=== PATIENT | male | born 1965 | race American Indian/Alaskan Native ===

== ENCOUNTER 2017-02-07 14:38 | Inpatient (IN) | payer MEDICAID ==
[2017-02-07 15:11] VITALS: BMI 30.7
--- NOTE | 2017-02-07 15:53 | C.PDOC ---
History Of Present Illness 51 Y/O MALE WITH PMHx OF DM AND ANXIETY REFERRED BY DR. WILCOX WITH C/O LESION TO POSTERIOR RIGHT FOOT. PT STATES FOOT HAS BEEN WORSENING OVER THE LAST 4 WEEKS. RECURRENT CHRONIC WOUND, 3 PRIOR ULCERS IN THE SAME SPOT, WITH PRIOR DEBRIDEMENT - LAST EPISODE APRIL 2016. PRIOR HISTORY OF OSTEO FOR THE SAME, USED TO BE TREATED WITH ZOSYN AND VANCOMYCIN. PT STATES HE HAS BEEN ON KEFLEX AND FOLLOWING UP AT WOUND CARE. NOTES PRIOR HISTORY OF 4 SURGERIES R FOOT, 2 SURGERIES LEFT FOOT. DENIES FEVER, CHILLS, NVD. Time Seen by Provider: 02/07/17 15:24 Chief Complaint (Nursing): Abnormal Skin Integrity History Per: Patient History/Exam Limitations: no limitations Onset/Duration Of Symptoms: Persistent Current Symptoms Are (Timing): Still Present Location Of Injury: Right: Foot, Posterior: Foot Quality Of Symptoms: Painful, Draining Recent travel outside of the [place]: No Past Medical History Reviewed: Historical Data, Nursing Documentation, Vital Signs Vital Signs: Last Vital Signs Temp 98.2 F 02/07/17 15:06 Pulse 81 02/07/17 15:06 Resp 18 02/07/17 15:06 BP 124/82 02/07/17 15:06 Pulse Ox 98 02/07/17 16:00 - Medical History PMH: Anemia, Anxiety, Asthma, Bronchitis, Cardia Arrhythmia (SVT), Diabetes, HTN - [facility] Procedures DESTRUC-FOOT JT LES NEC (09/13/14) EXCIS DEBRIDE OF WOUND, INFECT, OR BURN (05/20/13) FOOT SYNOVECTOMY (09/13/14) INCIS W REM OF FORIEGN BODY OR DEV FROM SKIN & SUBCUT TISSUE (08/20/13) INJECT ANTIBIOTIC (10/06/13) INJECT/INFUSE NEC (09/10/13) INSERTION OF INFUSION DEV INTO SUP VENA CAVA, PERC APPROACH (03/01/15) LOC EXC BONE LESION NEC (11/12/13) LOC EXC LES METATAR/TAR (04/01/13) OTHER SUTURE OF TENDON (09/13/14) PHYSICAL THERAPY NEC (05/12/14) REPAIR OF HAMMER TOE (04/01/13) VENOUS CATHETERIZATION NEC (08/20/13) Family History: States: Unknown Family Hx - Social History Hx Tobacco Use: Yes Hx Alcohol Use: Yes Hx Substance Use: No (Denied) - Immunization History Hx Tetanus Toxoid Vaccination: No Hx Influenza Vaccination: Yes (2017) Hx Pneumococcal Vaccination: No Review Of Systems Except As Marked, All Systems Reviewed And Found Negative. Constitutional: Negative for: Fever, Chills Cardiovascular: Negative for: Chest Pain, Palpitations Respiratory: Negative for: Shortness of Breath Skin: Positive for: Lesions (R POSTERIOR HEEL). Negative for: Rash Neurological: Negative for: Weakness, Numbness Physical Exam - Physical Exam Appears: Non-toxic, No Acute Distress Skin: Warm, Dry Head: Atraumatic, Normacephalic Chest: Symmetrical Cardiovascular: Rhythm Regular Respiratory: Normal Breath Sounds, No Rales, No Rhonchi, No Wheezing Gastrointestinal/Abdominal: Soft, No Tenderness, No Guarding, No Rebound Back: Normal Inspection Extremity: Normal ROM, Other (R POSTERIOR FOOT, CALCANEAL AREA: < 1.0 CM WIDE, + TENDER, DIABETIC ULCER, CHRONIC APPEARING. ) Neurological/Psych: Oriented x3 ED Course And Treatment - Laboratory Results Result Diagrams: 02/07/17 16:06 02/07/17 16:06 O2 Sat by Pulse Oximetry: 98 (RA) Pulse Ox Interpretation: Normal - Radiology CXR: Interpreted by Me CXR Interpretation: Yes: No Acute Disease - Other Rad R FOOT X-Ray: Interpreted by Me (NEG) Progress - Re-Evaluation Re-evaluation Note: 02/07/17 1545 D/W DR HAAS WILL ADMIT 02/07/17 15:51 D/W PODIATRY RESIDENT WILL EVAL INPT - Data Reviewed Data Reviewed: Lab, Diagnostic imaging, EKG Disposition Counseled Patient/Family Regarding: Studies Performed, Diagnosis, Need For Followup - Disposition Disposition: HOSPITALIZED Disposition Time: 15:52 Condition: STABLE - Clinical Impression Clinical Impression: Diabetic foot ulcer - Scribe Statement The provider has reviewed the documentation as recorded by the Scribe SM All medical record entries made by the Scribe were at my direction and personally dictated by me. I have reviewed the chart and agree that the record accurately reflects my personal performance of the history, physical exam, medical decision making, and the department course for this patient. I have also personally directed, reviewed, and agree with the discharge instructions and disposition. Decision To Admit - Pt Status Changed To: Hospital Disposition Of: Inpatient - Admit Certification Admit to Inpatient:: After my assessment, the patient will require hospitalization for at least two midnights. This is because of the severity of symptoms shown, intensity of services needed, and/or the medical risk in this patient being treated as an outpatient. - InPatient: Physician Admission Certification: I certify that this patient requires 2 or more midnights of care for the following reason:: SEE NOTE - . Bed Request Type: Regular Admitting Physician: Andres Haas Patient Diagnosis: Diabetic foot ulcer
[2017-02-07] MEDS ORDERED: Piperacillin/Tazobact 3.375 gm 100 ML IV STA (15:55)
[2017-02-07] MEDS ORDERED: ALBUTEROL SULFATE INH PRN ×2 (15:59→19:45)
[2017-02-07] MEDS ORDERED: Vancomycin 1 gm/NS 200 ml 1 GM/200 ML BAG IVPB ONE (16:00)
--- NOTE | 2017-02-07 16:09 | CP.PCM.PN ---
Subjective - Date & Time of Evaluation Date of Evaluation: 02/07/17 Time of Evaluation: 16:00 - Subjective Subjective: PROGRESS NOTE. Service: DR. HAAS This is a 51 yo male with past medical hx of anxiety, type 1 DM, osteomyelitis, gynecomastia presenting with infected diabetic foot. Patient has been on keflex for the past month for non healing diabetic foot ulcer. He has been seeing Dr. Barajas. Most recently on Friday. Patient was told at that time to go to ER. However, patient had family emergency and waited to come to ER until today. The wound on his foot is non healing and recently the patient says it has been leaking with a foul odor. Denies fevers, but says he has some chills. This has happened before and he has had multiple debridements. Denies pain, sob, cp. PMH: DM type 1, gynecomastia, anxiety PSH: wound debridement, sx for gynecomastia Allergies: NKDA FH: DM Home meds: insulin humalog 70/30, xanax Social hx: Current smoker, not heavy. No drinking. No drugs. Not working. Objective - Vital Signs/Intake and Output Vital Signs (last 24 hours): Temp Pulse Resp BP Pulse Ox 98.2 F 81 18 124/82 98 02/07/17 15:06 02/07/17 15:06 02/07/17 15:06 02/07/17 15:06 02/07/17 16:00 - Medications Medications: Current Medications Home Med (Albuterol Sulfate [Ventolin Hfa]) 1 puff INH PRN PRN PRN Reason: Wheezing Piperacillin Sod/Tazobactam Sod (Zosyn 3.375 In Ns 100ml) 100 mls @ 200 mls/hr IV STAT STA Stop: 02/07/17 16:24 Vancomycin/Sodium Chloride (Vancomycin 1 Gm/Ns 200 Ml) 1 gm in 200 mls @ 166.667 mls/hr IVPB ONCE ONE Stop: 02/07/17 17:11 Vancomycin HCl 1 gm/ Sodium (Chloride) 250 mls @ 167 mls/hr IVPB Q24H DIMITRIOS Piperacillin Sod/Tazobactam Sod (Zosyn 3.375 Gm Iv Premix) 3.375 gm in 50 mls @ 100 mls/hr IVPB Q6H DIMITRIOS Insulin Human Regular (Novolin R) 0 unit SC ACHS DIMITRIOS PRN Reason: Protocol - Constitutional Appears: Non-toxic, No Acute Distress - Head Exam Head Exam: ATRAUMATIC, NORMAL INSPECTION, NORMOCEPHALIC - ENT Exam ENT Exam: Mucous Membranes Moist - Neck Exam Neck Exam: Full ROM, Normal Inspection - Respiratory Exam Respiratory Exam: NORMAL BREATHING PATTERN. absent: Respiratory Distress - Cardiovascular Exam Cardiovascular Exam: +S1, +S2 - GI/Abdominal Exam GI & Abdominal Exam: Soft, Normal Bowel Sounds. absent: Tenderness - Extremities Exam Extremities Exam: absent: Normal Inspection Additional comments: Wound right foot, open, no pus at this time - Neurological Exam Neurological Exam: Alert, Awake, Oriented x3 - Psychiatric Exam Psychiatric exam: Normal Affect, Normal Mood - Skin Skin Exam: Dry, Intact, Normal Color, Warm Assessment and Plan - Assessment and Plan (Free Text) Assessment: This is a 51 yo male with past medical hx of asthma, DM, anxiety, osteo presenting with 1. R/o osteomyelitis -x ray right foot -blood cultures -wound cultures -podiatry consult. recs appreciated. -ID consult. recs appreciated -will start IV vanco and zosyn -ESR and CRP 2. hx of DM -ISS 3. hx of asthma -continue albuterol 4. hx of anxiety -continue to monitor 5. GI/DVT ppx -SCDS -protonix discussed with Dr. Haas
[2017-02-07 16:12] LABS: BASO % 0.7 % (0.0-2.0); EOS # 0.1 K/uL (0.0-0.7); HEMATOCRIT 45.3 % (35.0-51.0); LYMPH # 1.8 K/uL (1.0-4.3); LYMPH % 27.3 % (20.0-40.0); MEAN CELL VOLUME 98.2 fL (80.0-94.0); MEAN CORPUSCULAR HEMOGLOBIN 33.2 pg (27.0-31.0); MEAN CORPUSCULAR HGB CONC 33.8 g/dL (33.0-37.0); MEAN PLATELET VOLUME 8.5 fL (7.2-11.7); MONO # 0.5 K/uL (0.0-0.8); MONO % 7.5 % (0.0-10.0); NRBC % 0.1 % (0.0-2.0); RED CELL DISTRIBUTION WIDTH 13.1 % (11.5-14.5); WHITE BLOOD COUNT 6.4 K/uL (4.8-10.8)
[2017-02-07 16:17] LABS: CHLORIDE 100 mmol/L (98-107)
[2017-02-07 16:18] LABS: POTASSIUM 3.7 mmol/L (3.6-5.2); SODIUM 133 mmol/L (132-148)
[2017-02-07 16:20] LABS: GFR AFRICAN-AMERICAN > 60
[2017-02-07 16:21] LABS: BLOOD UREA NITROGEN 7 mg/dL (9-20); CARBON DIOXIDE 23 mmol/L (22-30); GLUCOSE,RANDOM 112 mg/dL (75-110)
[2017-02-07] MEDS: Piperacill/Tazo 3.375gm in Dex 3.375 GM/50 ML BAG IVPB SCH ×2 (18:13→23:39)
--- NOTE | 2017-02-07 18:52 | RAD ---
PROCEDURE: CHEST RADIOGRAPH, 1 VIEW HISTORY: MED CLEAR COMPARISON: Comparison chest dated 02/28/2016. . FINDINGS: LUNGS: No acute infiltrates. PLEURA: No pneumothorax or pleural fluid seen. CARDIOVASCULAR: Normal. OSSEOUS STRUCTURES: No significant abnormalities. VISUALIZED UPPER ABDOMEN: Normal. OTHER FINDINGS: None. IMPRESSION: No acute infiltrates.
--- NOTE | 2017-02-07 19:28 | CP.PCM.CON ---
History of Present Illness - History of Present Illness History of Present Illness: 51 Y/O MALE WITH PMHx OF DM AND ANXIETY REFERRED BY DR. COLUNGA WITH C/O LESION TO POSTERIOR RIGHT FOOT. PT STATES FOOT HAS BEEN WORSENING OVER THE LAST 4 WEEKS. RECURRENT CHRONIC WOUND, 3 PRIOR ULCERS IN THE SAME SPOT, WITH PRIOR DEBRIDEMENT - LAST EPISODE APRIL 2016. PRIOR HISTORY OF OSTEO FOR THE SAME, USED TO BE TREATED WITH ZOSYN AND VANCOMYCIN. PT STATES HE HAS BEEN ON KEFLEX AND FOLLOWING UP AT WOUND CARE. NOTES PRIOR HISTORY OF 4 SURGERIES R FOOT, 2 SURGERIES LEFT FOOT. DENIES FEVER, CHILLS, NVD. - Medical History PMH: Anemia, Anxiety, Asthma, Bronchitis, Cardia Arrhythmia (SVT), Diabetes, HTN Review of Systems - Review of Systems All systems: reviewed and no additional remarkable complaints except - Constitutional Constitutional: As Per HPI - EENT Eyes: absent: As Per HPI, Blind Spots, Blurred Vision, Change in Vision, Decreased Night Vision, Diplopia, Discharge, Dry Eye, Exophthalmos, Floaters, Irritation, Itchy Eyes, Loss of Peripheral Vision, Pain, Photophobia, Requires Corrective Lenses, Sees Flashes, Spots in Vision, Tunnel Vision, Other Visual Disturbances, Loss of Vision, Other Ears: absent: As Per HPI, Decreased Hearing, Ear Discharge, Ear Pain, Tinnitus, Abnormal Hearing, Disequilibrium, Dizziness, Other Nose/Mouth/Throat: absent: As Per HPI, Epistaxis, Nasal Congestion, Nasal Discharge, Nasal Obstruction, Nasal Trauma, Nose Pain, Post Nasal Drip, Sinus Pain, Sinus Pressure, Bleeding Gums, Change in Voice, Dental Pain, Dry Mouth, Dysphagia, Halitosis, Hoarsness, Lip Swelling, Mouth Lesions, Mouth Pain, Odynophagia, Sore Throat, Throat Swelling, Tongue Swelling, Facial Pain, Neck Pain, Neck Mass, Other - Cardiovascular Cardiovascular: absent: As Per HPI, Acrocyanosis, Chest Pain, Chest Pain at Rest , Chest Pain with Activity, Claudication, Diaphoresis, Dyspnea, Dyspnea on Exertion, Edema, Irregular Heart Rhythm, Pain Radiating to Arm/Neck/Jaw, Leg Edema, Leg Ulcers, Lightheadedness, Orthopnea, Palpitations, Paroxysmal Nocturnal Dyspnea, Pedal Edema, Radiating Pain, Rapid Heart Rate, Slow Heart Rate, Syncope, Other - Respiratory Respiratory: absent: As Per HPI, Cough, Dyspnea, Hemoptysis, Dyspnea on Exertion , Wheezing, Snoring, Stridor, Pain on Inspiration, Chest Congestion, Excessive Mucous Production, Change in Mucous Color, Pain with Coughing, Other - Gastrointestinal Gastrointestinal: absent: As Per HPI, Abdominal Pain, Belching, Bloating, Change in Bowel Habits, Change in Stool Character, Coffee Ground Emesis, Constipation, Cramping, Diarrhea, Dyspepsia, Dysphagia, Early Satiety, Excessive Flatus, Fecal Incontinence, Heartburn, Hematemesis, Hematochezia, Loose Stools, Melena, Nausea, Odynophagia, Temesmus, Vomiting, Other - Genitourinary Genitourinary: absent: As Per HPI, Change in Urinary Stream, Difficulty Urinating, Dysuria, Flank Pain, Hematuria, Pyuria, Nocturia, Urinary Incontinence, Urinary Frequency, Urinary Hesitance, Urinary Urgency, Voiding Freq/Small Amts, Freq UTI, Hx Renal/Bladder Calculi, Hx /Renal Surgery, Bladder Distension, Other - Musculoskeletal Musculoskeletal: As Per HPI - Integumentary Integumentary: As Per HPI, Skin Pain, Wounds - Neurological Neurological: absent: As Per HPI, Abnormal Gait, Abnormal Hearing, Abnormal Movements, Abnormal Speech, Behavioral Changes, Burning Sensations, Confusion, Convulsions, Disequilibrium, Dizziness, Numbness, Focal Weakness, Frequent Falls , Headaches, Lack of Coordination, Loss of Vision, Memory Loss, Paresthesias, Radicular Pain, Restless Legs, Sensory Deficit, Syncope, Tingling, Tremor, Vertigo, Weakness, Other Visual Disturbances, Other - Psychiatric Psychiatric: absent: As Per HPI, Abnormal Sleep Pattern, Anhedonia, Anxiety, Auditory Hallucinations, Behavioral Changes, Change in Appetite, Change in Libido, Confusion, Depression, Difficulty Concentrating, Hallucinations, Homicidal Ideation, Hopelessness, Irritability, Memory Loss, Mood Swings, Panic Attacks, Paranoia, Suicidal Ideation, Visual Hallucinations, Tactile Hallucinations, Other - Endocrine Endocrine: absent: As Per HPI, Change in Body Appearance, Change in Libido, Cold Intolorance, Deepening of Voice, Excessive Sweating, Fatigue, Flushing, Heat Intolorance, Increase in Ring/Shoe/Hat Size, Palpitations, Polydipsia, Polyphagia, Polyuria, Other - Hematologic/Lymphatic Hematologic: absent: As Per HPI, Easy Bleeding, Easy Bruising, Lymphadenopathy, Other Past Patient History - Infectious Disease Hx of Infectious Diseases: None - Tetanus Immunizations Tetanus Immunization: Unknown - Past Medical History & Family History Past Medical History?: Yes - Past Social History Smoking Status: Light Smoker < 10 Cigarettes Daily - CARDIAC Hx Cardia Arrhythmia: Yes (SVT) Hx Hypertension: Yes - PULMONARY Hx Asthma: Yes Hx Bronchitis: Yes - NEUROLOGICAL Hx Neurological Disorder: No HX Cerebrovascular Accident: No - HEENT Hx HEENT Problems: No - RENAL Hx Chronic Kidney Disease: No - ENDOCRINE/METABOLIC Hx Diabetes Mellitus Type 2: Yes Hx Hypothyroidism: No - HEMATOLOGICAL/ONCOLOGICAL Hx Anemia: Yes - INTEGUMENTARY Hx Dermatological Problems: No Other/Comment: dry skin , hard thick nails both feet - MUSCULOSKELETAL/RHEUMATOLOGICAL Hx Falls: No - GASTROINTESTINAL Hx Gastrointestinal Disorders: No - GENITOURINARY/GYNECOLOGICAL Hx Genitourinary Disorders: No - PSYCHIATRIC Hx Substance Use: No - SURGICAL HISTORY Hx Surgeries: Yes (coty picc line for abx for bone infection) Hx Cataract Extraction: Yes Hx Musculoskeletal Surgery: Yes (JARRED FOOT ) Other/Comment: right foot sx with dr colunga for heel spur, bone removed out of heel and 5th toe bunyon removed. pilonidal cystectomy, left foot surgery 2014 - ANESTHESIA Hx Anesthesia: Yes Hx Anesthesia Reactions: No Hx Malignant Hyperthermia: No Meds Allergies/Adverse Reactions: Allergies Allergy/AdvReac Type Severity Reaction Status Date / Time No Known Allergies Allergy Verified 02/07/17 15:05 - Medications Medications: Current Medications Home Med (Albuterol Sulfate [Ventolin Hfa]) 1 puff INH PRN PRN PRN Reason: Wheezing Piperacillin Sod/Tazobactam Sod (Zosyn 3.375 Gm Iv Premix) 3.375 gm in 50 mls @ 100 mls/hr IVPB Q6H DIMITRIOS Last Admin: 02/07/17 18:13 Dose: 100 mls/hr Vancomycin/Sodium Chloride (Vancomycin 1 Gm/Ns 200 Ml) 1 gm in 200 mls @ 133 mls/hr IVPB Q24H DIMITRIOS Stop: 02/13/17 16:01 Insulin Human Regular (Novolin R) 0 unit SC ACHS DIMITRIOS PRN Reason: Protocol Pantoprazole Sodium (Protonix Inj) 40 mg IVP DAILY [facility] Pneumococcal Polyvalent Vaccine (Pneumovax 23 Vaccine) 0.5 ml IM .ONCE ONE Stop: 02/09/17 10:01 Physical Exam - Constitutional Appears: Non-toxic, Chronically Ill - Head Exam Head Exam: NORMOCEPHALIC - Eye Exam Eye Exam: PERRL. absent: Scleral icterus - ENT Exam ENT Exam: Mucous Membranes Dry, Normal External Ear Exam - Neck Exam Neck exam: Negative for: Lymphadenopathy - Respiratory Exam Respiratory Exam: Decreased Breath Sounds - Cardiovascular Exam Cardiovascular Exam: REGULAR RHYTHM - GI/Abdominal Exam GI & Abdominal Exam: Diminished Bowel Sounds, Soft. absent: Tenderness - Rectal Exam Rectal Exam: Deferred - Exam Exam: NORMAL INSPECTION - Extremities Exam Extremities exam: Negative for: pedal edema, tenderness - Back Exam Back exam: absent: CVA tenderness (L), CVA tenderness (R) - Neurological Exam Neurological exam: Alert, CN II-XII Intact, Oriented x3, Reflexes Normal - Psychiatric Exam Psychiatric exam: Normal Mood - Skin Skin Exam: Dry Results - Vital Signs Recent Vital Signs: Last Vital Signs Temp 97.7 F 02/07/17 18:13 Pulse 61 02/07/17 18:13 Resp 20 02/07/17 18:13 BP 121/81 02/07/17 18:13 Pulse Ox 98 02/07/17 18:39 - Labs Result Diagrams: 02/07/17 16:06 02/07/17 16:06 Labs: Laboratory Results - last 24 hr 02/07/17 02/07/17 16:06 16:06 WBC 6.4 RBC 4.61 Hgb 15.3 Hct 45.3 MCV 98.2 H D MCH 33.2 H MCHC 33.8 RDW 13.1 Plt Count 225 MPV 8.5 Neut % (Auto) 63.5 Lymph % (Auto) 27.3 Bacon % (Auto) 7.5 Eos % (Auto) 1.0 Baso % (Auto) 0.7 Neut # 4.1 Lymph # 1.8 Bacon # 0.5 Eos # 0.1 Baso # 0.0 Sodium 133 Potassium 3.7 Chloride 100 Carbon Dioxide 23 Anion Gap 14 BUN 7 L Creatinine 0.7 L Est GFR ( Amer) > 60 Est GFR (Non-Af Amer) > 60 Random Glucose 112 H Calcium 9.0 Assessment & Plan (1) Diabetic foot ulcer Status: Acute (2) Osteomyelitis Status: Acute - Assessment and Plan (Free Text) Assessment: cont iv rx and wound care mri bone scan dr colunga for debridement
[2017-02-07] MEDS ORDERED: Albuterol HFA 90 mcg/actuation (8 g) INH PRN (19:45)
[2017-02-07] MEDS: Oxycodone/Acetaminophen 5/325 mg Tab PO PRN (20:16)
[2017-02-07] MEDS: Enoxaparin 40 mg Syringe SC SCH (22:00)
[2017-02-07] MEDS: (Novolin R) Insulin Human Regular 100 units/ml vial SC SCH (22:00)
[2017-02-08] MEDS: Oxycodone/Acetaminophen 5/325 mg Tab PO PRN ×4 (01:51→22:05)
[2017-02-08] MEDS: Piperacill/Tazo 3.375gm in Dex 3.375 GM/50 ML BAG IVPB SCH ×4 (04:29→21:18)
--- NOTE | 2017-02-08 08:09 | RAD ---
Right foot four views History: Diabetic ulcer. Comparison: None available. Findings: Prominent soft tissue ulceration at the posterior calcaneus. Prominent plantar calcaneal spurring. Ossific density seen superior to the posterior superior calcaneus which may represent avulsed spur. Some mild sclerosis seen at the posterior calcaneus, nonspecific. If there is concern for acute osteomyelitis, consider further evaluation with MRI. Productive change at the dorsal aspect of the midfoot. Suggestion of prior postsurgical changes and or degenerative change at the head of the 5th proximal phalanx. Hallux valgus deformity. Degenerative changes of the 1st MTP joint space. Impression: Prominent soft tissue ulceration at the posterior calcaneus. Prominent plantar calcaneal spurring. Ossific density seen superior to the posterior superior calcaneus which may represent avulsed spur. Some mild sclerosis seen at the posterior calcaneus, nonspecific. If there is concern for acute osteomyelitis, consider further evaluation with MRI. Productive change at the dorsal aspect of the midfoot. Suggestion of prior postsurgical changes and or degenerative change at the head of the 5th proximal phalanx. Hallux valgus deformity. Degenerative changes of the 1st MTP joint space.
[2017-02-08] MEDS: (Novolin R) Insulin Human Regular 100 units/ml vial SC SCH ×4 (08:14→21:19)
--- NOTE | 2017-02-08 08:40 | CP.PCM.CON ---
<Lefty Colunga - Last Filed: 02/08/17 08:33> History of Present Illness - History of Present Illness History of Present Illness: 51 year old male diabetic pt who presented last friday after long absence from follow up ie. 5 [place] .Pt presented with chronic non -healing wound posterior heel with multiple infections and unfortunately a long history of missed appts and non compliance with follow up at wound center and out pt infusion center. Past Patient History - Infectious Disease Hx of Infectious Diseases: None - Tetanus Immunizations Tetanus Immunization: Unknown - Past Medical History & Family History Past Medical History?: Yes - Past Social History Smoking Status: Light Smoker < 10 Cigarettes Daily - CARDIAC Hx Cardia Arrhythmia: Yes (SVT) Hx Hypertension: Yes - PULMONARY Hx Asthma: Yes Hx Bronchitis: Yes - NEUROLOGICAL Hx Neurological Disorder: No HX Cerebrovascular Accident: No - HEENT Hx HEENT Problems: No - RENAL Hx Chronic Kidney Disease: No - ENDOCRINE/METABOLIC Hx Diabetes Mellitus Type 2: Yes Hx Hypothyroidism: No - HEMATOLOGICAL/ONCOLOGICAL Hx Anemia: Yes - INTEGUMENTARY Hx Dermatological Problems: No Other/Comment: dry skin , hard thick nails both feet - MUSCULOSKELETAL/RHEUMATOLOGICAL Hx Falls: No - GASTROINTESTINAL Hx Gastrointestinal Disorders: No - GENITOURINARY/GYNECOLOGICAL Hx Genitourinary Disorders: No - PSYCHIATRIC Hx Substance Use: No - SURGICAL HISTORY Hx Surgeries: Yes (coty picc line for abx for bone infection) Hx Cataract Extraction: Yes Hx Musculoskeletal Surgery: Yes (JARRED FOOT ) Other/Comment: right foot sx with dr colunga for heel spur, bone removed out of heel and 5th toe bunyon removed. pilonidal cystectomy, left foot surgery 2013 - ANESTHESIA Hx Anesthesia: Yes Hx Anesthesia Reactions: No Hx Malignant Hyperthermia: No Meds Allergies/Adverse Reactions: Allergies Allergy/AdvReac Type Severity Reaction Status Date / Time No Known Allergies Allergy Verified 02/07/17 15:05 - Medications Medications: Current Medications Albuterol (Ventolin Hfa 90 Mcg/Actuation (8 G)) 1 puff INH RQ4 PRN PRN Reason: Wheezing Enoxaparin Sodium (Lovenox) 40 mg SC DAILY [facility] Last Admin: 02/07/17 22:00 Dose: 40 mg Piperacillin Sod/Tazobactam Sod (Zosyn 3.375 Gm Iv Premix) 3.375 gm in 50 mls @ 100 mls/hr IVPB Q6H [facility] Last Admin: 02/08/17 04:29 Dose: 100 mls/hr Vancomycin/Sodium Chloride (Vancomycin 1 Gm/Ns 200 Ml) 1 gm in 200 mls @ 133 mls/hr IVPB Q24H [facility] Stop: 02/13/17 16:01 Insulin Human Regular (Novolin R) 0 unit SC ACHS [facility] PRN Reason: Protocol Last Admin: 02/08/17 08:14 Dose: Not Given Oxycodone/Acetaminophen (Percocet 5/325 Mg Tab) 1 tab PO Q4H PRN PRN Reason: Pain, moderate (4-7) Stop: 02/10/17 19:56 Last Admin: 02/08/17 01:51 Dose: 1 tab Pantoprazole Sodium (Protonix Inj) 40 mg IVP DAILY [facility] Pneumococcal Polyvalent Vaccine (Pneumovax 23 Vaccine) 0.5 ml IM .ONCE ONE Stop: 02/09/17 10:01 Results - Vital Signs Recent Vital Signs: Last Vital Signs Temp 98.2 F 02/08/17 00:21 Pulse 60 02/08/17 00:21 Resp 20 02/08/17 00:21 BP 126/78 02/08/17 00:21 Pulse Ox 98 02/08/17 00:21 - Labs Result Diagrams: 02/07/17 16:06 02/07/17 16:06 Labs: Laboratory Results - last 24 hr 02/07/17 02/07/17 02/07/17 15:48 16:06 16:06 WBC 6.4 RBC 4.61 Hgb 15.3 Hct 45.3 MCV 98.2 H D MCH 33.2 H MCHC 33.8 RDW 13.1 Plt Count 225 MPV 8.5 Neut % (Auto) 63.5 Lymph % (Auto) 27.3 [place] % (Auto) 7.5 Eos % (Auto) 1.0 Baso % (Auto) 0.7 Neut # 4.1 Lymph # 1.8 [place] # 0.5 Eos # 0.1 Baso # 0.0 ESR 7 Sodium 133 Potassium 3.7 Chloride 100 Carbon Dioxide 23 Anion Gap 14 BUN 7 L Creatinine 0.7 L Est GFR ( Amer) > 60 Est GFR (Non-Af Amer) > 60 POC Glucose (mg/dL) 121 H Random Glucose 112 H Calcium 9.0 C-React Prot High Sens 02/07/17 02/07/17 02/08/17 16:06 21:28 02:26 WBC RBC Hgb Hct MCV MCH MCHC RDW Plt Count MPV Neut % (Auto) Lymph % (Auto) [place] % (Auto) Eos % (Auto) Baso % (Auto) Neut # Lymph # [place] # Eos # Baso # ESR Sodium Potassium Chloride Carbon Dioxide Anion Gap BUN Creatinine Est GFR ( Amer) Est GFR (Non-Af Amer) POC Glucose (mg/dL) 136 H 89 Random Glucose Calcium C-React Prot High Sens 5.09 H <Pam Hagan - Last Filed: 02/08/17 12:28> History of Present Illness - History of Present Illness History of Present Illness: 51 y/o male patient with pmhx of anxiety, type 1 DM, osteomyelitis, gynecomastia presenting with right posterior foot superficial ulceration. Gail was seen in Dr. Colunga's office but has been noncompliant and has missed many scheduled appointments. Patient complains of mild pain to the back of his heel. He states that he has had multiple procedures done to heal the wound but nothing has worked so far. Patient states that he was in a senior care for a few months to try and heal the wound but it has not closed yet. Patient denies any other pedal complaints at this time. Dressing remains c/d/i. Review of Systems - Constitutional Constitutional: As Per HPI Meds - Medications Medications: Current Medications Albuterol (Ventolin Hfa 90 Mcg/Actuation (8 G)) 1 puff INH RQ4 PRN PRN Reason: Wheezing Enoxaparin Sodium (Lovenox) 40 mg SC DAILY [facility] Last Admin: 02/08/17 09:21 Dose: 40 mg Piperacillin Sod/Tazobactam Sod (Zosyn 3.375 Gm Iv Premix) 3.375 gm in 50 mls @ 100 mls/hr IVPB Q6H [facility] Last Admin: 02/08/17 09:20 Dose: 100 mls/hr Vancomycin/Sodium Chloride (Vancomycin 1 Gm/Ns 200 Ml) 1 gm in 200 mls @ 133 mls/hr IVPB Q24H [facility] Stop: 02/13/17 16:01 Insulin Human Regular (Novolin R) 0 unit SC ACHS [facility] PRN Reason: Protocol Last Admin: 02/08/17 08:14 Dose: Not Given Mupirocin (Bactroban Ointment) 0 gm TOP BID [facility] Last Admin: 02/08/17 10:18 Dose: Not Given Oxycodone/Acetaminophen (Percocet 5/325 Mg Tab) 1 tab PO Q4H PRN PRN Reason: Pain, moderate (4-7) Stop: 02/10/17 19:56 Last Admin: 02/08/17 09:19 Dose: 1 tab Pantoprazole Sodium (Protonix Inj) 40 mg IVP DAILY [facility] Last Admin: 02/08/17 09:20 Dose: 40 mg Pneumococcal Polyvalent Vaccine (Pneumovax 23 Vaccine) 0.5 ml IM .ONCE ONE Stop: 02/09/17 10:01 Physical Exam - Constitutional Appears: Well, Non-toxic, No Acute Distress - Extremities Exam Additional comments: right foot focused: Vasc: lightly palpable DP and PT pulses, CFT < 3 sec to all digits, TG wnl Neuro: grossly intact derm: no edema, no erythema, superficial ulceration to posterior heel measuring 1cm x 1.5 cm x 0.5 cm with fibrous base, no purulence, no drainage, no ascending cellulitis, no fluctuance, no malodor ortho: mild pain on palpation surrounding the wound - Neurological Exam Neurological exam: Alert, Oriented x3 - Psychiatric Exam Psychiatric exam: Normal Affect, Normal Mood Results - Vital Signs Recent Vital Signs: Last Vital Signs Temp 98.2 F 02/08/17 00:21 Pulse 60 02/08/17 00:21 Resp 20 02/08/17 00:21 BP 126/78 02/08/17 00:21 Pulse Ox 98 02/08/17 00:21 - Labs Result Diagrams: 02/08/17 08:38 02/08/17 08:40 Labs: Laboratory Results - last 24 hr 02/07/17 02/07/17 02/07/17 15:48 16:06 16:06 WBC 6.4 RBC 4.61 Hgb 15.3 Hct 45.3 MCV 98.2 H D MCH 33.2 H MCHC 33.8 RDW 13.1 Plt Count 225 MPV 8.5 Neut % (Auto) 63.5 Lymph % (Auto) 27.3 [place] % (Auto) 7.5 Eos % (Auto) 1.0 Baso % (Auto) 0.7 Neut # 4.1 Lymph # 1.8 [place] # 0.5 Eos # 0.1 Baso # 0.0 ESR 7 Sodium 133 Potassium 3.7 Chloride 100 Carbon Dioxide 23 Anion Gap 14 BUN 7 L Creatinine 0.7 L Est GFR ( Amer) > 60 Est GFR (Non-Af Amer) > 60 POC Glucose (mg/dL) 121 H Random Glucose 112 H Calcium 9.0 Total Bilirubin AST ALT Alkaline Phosphatase C-React Prot High Sens Total Protein Albumin Globulin Albumin/Globulin Ratio 02/07/17 02/07/17 02/08/17 16:06 21:28 02:26 WBC RBC Hgb Hct MCV MCH MCHC RDW Plt Count MPV Neut % (Auto) Lymph % (Auto) [place] % (Auto) Eos % (Auto) Baso % (Auto) Neut # Lymph # [place] # Eos # Baso # ESR Sodium Potassium Chloride Carbon Dioxide Anion Gap BUN Creatinine Est GFR ( Amer) Est GFR (Non-Af Amer) POC Glucose (mg/dL) 136 H 89 Random Glucose Calcium Total Bilirubin AST ALT Alkaline Phosphatase C-React Prot High Sens 5.09 H Total Protein Albumin Globulin Albumin/Globulin Ratio 02/08/17 02/08/17 02/08/17 07:09 08:38 08:40 WBC 5.2 RBC 4.60 Hgb 15.3 Hct 45.2 MCV 98.4 H MCH 33.2 H MCHC 33.8 RDW 13.6 Plt Count 222 MPV 8.9 Neut % (Auto) 56.9 Lymph % (Auto) 28.6 [place] % (Auto) 11.5 H Eos % (Auto) 2.2 Baso % (Auto) 0.8 Neut # 2.9 Lymph # 1.5 [place] # 0.6 Eos # 0.1 Baso # 0.0 ESR Sodium 135 Potassium 3.7 Chloride 100 Carbon Dioxide 24 Anion Gap 16 BUN 8 L Creatinine 0.8 Est GFR ( Amer) > 60 Est GFR (Non-Af Amer) > 60 POC Glucose (mg/dL) 98 Random Glucose 89 Calcium 8.8 Total Bilirubin 1.1 AST 38 ALT 48 Alkaline Phosphatase 69 C-React Prot High Sens Total Protein 6.8 Albumin 3.9 Globulin 2.9 Albumin/Globulin Ratio 1.4 Assessment & Plan - Assessment and Plan (Free Text) Assessment: 51 yo male with past medical hx of anxiety, type 1 DM, osteomyelitis, gynecomastia seen at bedside for right foot posterior heel chronic ulceration Plan: patient evaluated and chart reviewed labs and vitals reviewed; afebrile, WBC 5.2 applied betadine, DSD to right foot Rx bactroban ointment to apply topically f/u wound cx f/u bone scan cont. IV abx as per ID podiatry will continue to monitor while patient remains in house
[2017-02-08 08:44] LABS: BASO % 0.8 % (0.0-2.0); EOS # 0.1 K/uL (0.0-0.7); EOS % 2.2 % (0.0-4.0); HEMATOCRIT 45.2 % (35.0-51.0); LYMPH # 1.5 K/uL (1.0-4.3); LYMPH % 28.6 % (20.0-40.0); MEAN CELL VOLUME 98.4 fL (80.0-94.0); MEAN CORPUSCULAR HEMOGLOBIN 33.2 pg (27.0-31.0); MEAN CORPUSCULAR HGB CONC 33.8 g/dL (33.0-37.0); MEAN PLATELET VOLUME 8.9 fL (7.2-11.7); MONO # 0.6 K/uL (0.0-0.8); MONO % 11.5 % (0.0-10.0); RED CELL DISTRIBUTION WIDTH 13.6 % (11.5-14.5); WHITE BLOOD COUNT 5.2 K/uL (4.8-10.8)
[2017-02-08 09:04] LABS: CHLORIDE 100 mmol/L (98-107); SODIUM 135 mmol/L (132-148)
[2017-02-08 09:05] LABS: POTASSIUM 3.7 mmol/L (3.6-5.2)
[2017-02-08 09:07] LABS: ALB/GLOB RATIO 1.4 (1.0-2.1); ALKALINE PHOSPHATASE 69 U/L (38-126); ALT/SGPT 48 U/L (21-72); AST/SGOT 38 U/L (17-59); BILIRUBIN,TOTAL 1.1 mg/dL (0.2-1.3); BLOOD UREA NITROGEN 8 mg/dL (9-20); CARBON DIOXIDE 24 mmol/L (22-30); GFR AFRICAN-AMERICAN > 60; GLUCOSE,RANDOM 89 mg/dL (75-110); TOTAL PROTEIN 6.8 g/dL (6.3-8.3)
[2017-02-08 09:08] LABS: CALCIUM 8.8 mg/dl (8.6-10.4)
[2017-02-08] MEDS: Enoxaparin 40 mg Syringe SC SCH (09:21)
[2017-02-08] MEDS: Vancomycin 1 gm/NS 200 ml 1 GM/200 ML BAG IVPB SCH (16:57)
[2017-02-09] MEDS: Piperacill/Tazo 3.375gm in Dex 3.375 GM/50 ML BAG IVPB SCH ×4 (04:14→21:30)
[2017-02-09] MEDS: Albuterol HFA 90 mcg/actuation (8 g) INH PRN (07:40)
[2017-02-09] MEDS: (Novolin R) Insulin Human Regular 100 units/ml vial SC SCH ×4 (08:02→21:31)
[2017-02-09] MEDS: Oxycodone/Acetaminophen 5/325 mg Tab PO PRN ×2 (08:19→16:38)
[2017-02-09] MEDS ORDERED: Pneumococcal 23-Valent Vaccine IM ONE (10:00)
[2017-02-09] MEDS: Enoxaparin 40 mg Syringe SC SCH (10:43)
--- NOTE | 2017-02-09 14:00 | CP.PCM.PN ---
Subjective - Date & Time of Evaluation Date of Evaluation: 02/09/17 Time of Evaluation: 13:57 - Subjective Subjective: 51 y/o male patient seen at bedside for right posterior foot superficial ulceration. Patient appears resting comfortably in NAD and AAOx3. Patient denies any pain in his feet. Patient denies any other pedal complaints at this time. Dressing remains c/d/i. Objective - Vital Signs/Intake and Output Vital Signs (last 24 hours): Temp Pulse Resp BP Pulse Ox 97.9 F 65 20 128/85 97 02/09/17 08:15 02/09/17 08:15 02/09/17 08:15 02/09/17 08:15 02/09/17 08:15 Intake and Output: 02/09/17 02/09/17 06:59 18:59 Intake Total 200 Balance 200 - Medications Medications: Current Medications Albuterol (Ventolin Hfa 90 Mcg/Actuation (8 G)) 1 puff INH RQ4 PRN PRN Reason: Wheezing Last Admin: 02/09/17 07:40 Dose: 1 puff Enoxaparin Sodium (Lovenox) 40 mg SC DAILY [facility] Last Admin: 02/09/17 10:43 Dose: 40 mg Piperacillin Sod/Tazobactam Sod (Zosyn 3.375 Gm Iv Premix) 3.375 gm in 50 mls @ 100 mls/hr IVPB Q6H [facility] Last Admin: 02/09/17 10:43 Dose: 100 mls/hr Vancomycin/Sodium Chloride (Vancomycin 1 Gm/Ns 200 Ml) 1 gm in 200 mls @ 133 mls/hr IVPB Q24H [facility] Stop: 02/13/17 16:01 Last Admin: 02/08/17 16:57 Dose: 133 mls/hr Insulin Human Regular (Novolin R) 0 unit SC ACHS [facility] PRN Reason: Protocol Last Admin: 02/09/17 11:37 Dose: Not Given Mupirocin (Bactroban Ointment) 0 gm TOP BID [facility] Last Admin: 02/09/17 10:57 Dose: 1 applic Oxycodone/Acetaminophen (Percocet 5/325 Mg Tab) 1 tab PO Q4H PRN PRN Reason: Pain, moderate (4-7) Stop: 02/10/17 19:56 Last Admin: 02/09/17 08:19 Dose: 1 tab Pantoprazole Sodium (Protonix Inj) 40 mg IVP DAILY [facility] Last Admin: 02/09/17 10:43 Dose: 40 mg - Labs Labs: 02/08/17 08:38 02/08/17 08:40 - Constitutional Appears: Well, Non-toxic, No Acute Distress - Extremities Exam Additional comments: right foot focused: Vasc: lightly palpable DP and PT pulses, CFT < 3 sec to all digits, TG wnl Neuro: grossly intact derm: no edema, no erythema, superficial ulceration to posterior heel measuring 1cm x 1.5 cm x 0.5 cm with fibrous base, no purulence, no drainage, no ascending cellulitis, no fluctuance, no malodor ortho: mild pain on palpation surrounding the wound - Neurological Exam Neurological Exam: Alert, Awake, Oriented x3 - Psychiatric Exam Psychiatric exam: Normal Affect, Normal Mood Assessment and Plan - Assessment and Plan (Free Text) Assessment: 51 yo male seen at bedside for right foot posterior heel chronic ulceration Plan: patient evaluated and chart reviewed discussed in detail with attending Dr. Barajas labs and vitals reviewed; afebrile, WBC 5.2 applied bactroban, DSD to right foot wound cx= corynebacterium, coag. negative staph f/u bone scan cont. IV abx as per ID podiatry will continue to monitor while patient remains in house
--- NOTE | 2017-02-09 16:01 | CP.PCM.PN ---
Subjective - Date & Time of Evaluation Date of Evaluation: 02/09/17 Time of Evaluation: 09:00 - Subjective Subjective: 51 y/o male patient seen at bedside for right posterior foot superficial ulceration. Objective - Vital Signs/Intake and Output Vital Signs (last 24 hours): Temp Pulse Resp BP Pulse Ox 97.9 F 65 20 128/85 97 02/09/17 08:15 02/09/17 08:15 02/09/17 08:15 02/09/17 08:15 02/09/17 08:15 Intake and Output: 02/09/17 02/09/17 06:59 18:59 Intake Total 550 Balance 550 - Medications Medications: Current Medications Albuterol (Ventolin Hfa 90 Mcg/Actuation (8 G)) 1 puff INH RQ4 PRN PRN Reason: Wheezing Last Admin: 02/09/17 07:40 Dose: 1 puff Enoxaparin Sodium (Lovenox) 40 mg SC DAILY [facility] Last Admin: 02/09/17 10:43 Dose: 40 mg Piperacillin Sod/Tazobactam Sod (Zosyn 3.375 Gm Iv Premix) 3.375 gm in 50 mls @ 100 mls/hr IVPB Q6H [facility] Last Admin: 02/09/17 10:43 Dose: 100 mls/hr Vancomycin/Sodium Chloride (Vancomycin 1 Gm/Ns 200 Ml) 1 gm in 200 mls @ 133 mls/hr IVPB Q24H [facility] Stop: 02/13/17 16:01 Last Admin: 02/08/17 16:57 Dose: 133 mls/hr Insulin Human Regular (Novolin R) 0 unit SC ACHS [facility] PRN Reason: Protocol Last Admin: 02/09/17 11:37 Dose: Not Given Mupirocin (Bactroban Ointment) 0 gm TOP BID [facility] Last Admin: 02/09/17 10:57 Dose: 1 applic Oxycodone/Acetaminophen (Percocet 5/325 Mg Tab) 1 tab PO Q4H PRN PRN Reason: Pain, moderate (4-7) Stop: 02/10/17 19:56 Last Admin: 02/09/17 08:19 Dose: 1 tab Pantoprazole Sodium (Protonix Inj) 40 mg IVP DAILY [facility] Last Admin: 02/09/17 10:43 Dose: 40 mg - Labs Labs: 02/08/17 08:38 02/08/17 08:40 - Constitutional Appears: Non-toxic, Chronically Ill - Head Exam Head Exam: NORMOCEPHALIC - Eye Exam Eye Exam: PERRL - ENT Exam ENT Exam: Mucous Membranes Dry - Neck Exam Neck Exam: absent: Lymphadenopathy - Respiratory Exam Respiratory Exam: Decreased Breath Sounds - Cardiovascular Exam Cardiovascular Exam: REGULAR RHYTHM - GI/Abdominal Exam GI & Abdominal Exam: Soft - Rectal Exam Rectal Exam: Deferred - Extremities Exam Extremities Exam: Pedal Edema - Back Exam Back Exam: absent: CVA tenderness (L), CVA tenderness (R) Assessment and Plan (1) Diabetic foot ulcer Status: Acute (2) Osteomyelitis Status: Acute - Assessment and Plan (Free Text) Assessment: cont iv rx and wound care may need vascular eval, MRI and OR debridement
[2017-02-09] MEDS: Vancomycin 1 gm/NS 200 ml 1 GM/200 ML BAG IVPB SCH (16:56)
--- NOTE | 2017-02-09 18:33 | HP ---
HISTORY OF PRESENT ILLNESS: Mr. Cotto was admitted to the hospital with a chief complaint of pain and discharge from the foot. The patient has a history of diabetes, hypertension, peripheral vascular disease, and history of osteomyelitis in the past. The patient neglected follow up with the reinsurance claims analyst. Later we discussed the case with the family. The patient is a smoker, has psychiatric disorder. PHYSICAL EXAMINATION: GENERAL: The patient is awake, alert, and oriented. VITAL SIGNS: Temperature 98.8, pulse is 90. HEENT: Within normal limits. NECK: Supple. CHEST: Symmetrical. HEART: Regular. ABDOMEN: Soft. EXTREMITIES: There is a wound by the heel of the foot with discharge. IMPRESSION: The patient suffers from being diabetic as well as osteomyelitis, at this point with IV antibiotics, Podiatry consult, and Infectious Disease consult. Andres Auguste MD
[2017-02-10] MEDS: Oxycodone/Acetaminophen 5/325 mg Tab PO PRN ×3 (01:20→22:47)
[2017-02-10] MEDS: Piperacill/Tazo 3.375gm in Dex 3.375 GM/50 ML BAG IVPB SCH ×4 (04:15→21:50)
[2017-02-10] MEDS: (Novolin R) Insulin Human Regular 100 units/ml vial SC SCH ×4 (08:27→21:47)
[2017-02-10] MEDS: Enoxaparin 40 mg Syringe SC SCH (11:20)
[2017-02-10 12:34] LABS: BASO # 0.1 K/uL (0.0-0.2); BASO % 0.6 % (0.0-2.0); EOS % 0.6 % (0.0-4.0); HEMATOCRIT 47.6 % (35.0-51.0); LYMPH # 1.6 K/uL (1.0-4.3); LYMPH % 20.8 % (20.0-40.0); MEAN CELL VOLUME 98.4 fL (80.0-94.0); MEAN CORPUSCULAR HEMOGLOBIN 33.6 pg (27.0-31.0); MEAN CORPUSCULAR HGB CONC 34.2 g/dL (33.0-37.0); MONO # 0.7 K/uL (0.0-0.8); MONO % 8.5 % (0.0-10.0); NRBC % 0.1 % (0.0-2.0); RED CELL DISTRIBUTION WIDTH 13.2 % (11.5-14.5); WHITE BLOOD COUNT 7.8 K/uL (4.8-10.8)
[2017-02-10 13:05] LABS: CHLORIDE 100 mmol/L (98-107); POTASSIUM 3.7 mmol/L (3.6-5.2); SODIUM 135 mmol/L (132-148)
[2017-02-10 13:08] LABS: ALB/GLOB RATIO 1.3 (1.0-2.1); ALKALINE PHOSPHATASE 70 U/L (38-126); ALT/SGPT 59 U/L (21-72); AST/SGOT 59 U/L (17-59); BILIRUBIN,TOTAL 1.1 mg/dL (0.2-1.3); BLOOD UREA NITROGEN 8 mg/dL (9-20); CARBON DIOXIDE 25 mmol/L (22-30); GFR AFRICAN-AMERICAN > 60; GLUCOSE,RANDOM 93 mg/dL (75-110); TOTAL PROTEIN 7.7 g/dL (6.3-8.3)
[2017-02-10 13:09] LABS: CALCIUM 9.3 mg/dl (8.6-10.4)
--- NOTE | 2017-02-10 14:11 | CP.PCM.PN ---
<Pam Hagan - Last Filed: 02/10/17 14:07> Subjective - Date & Time of Evaluation Date of Evaluation: 02/10/17 Time of Evaluation: 14:08 - Subjective Subjective: 51 y/o male patient seen at bedside with attending Dr. Barajas for right posterior foot superficial ulceration. Patient appears resting comfortably in NAD and AAOx3. Patient denies any pain in his feet. Patient denies any other pedal complaints at this time. Dressing remains c/d/i. Objective - Vital Signs/Intake and Output Vital Signs (last 24 hours): Temp Pulse Resp BP Pulse Ox 97.6 F 56 L 20 128/80 97 02/10/17 07:44 02/10/17 07:44 02/10/17 07:44 02/10/17 07:44 02/10/17 07:44 Intake and Output: 02/10/17 02/10/17 06:59 18:59 Intake Total 400 Balance 400 - Medications Medications: Current Medications Albuterol (Ventolin Hfa 90 Mcg/Actuation (8 G)) 1 puff INH RQ4 PRN PRN Reason: Wheezing Last Admin: 02/09/17 07:40 Dose: 1 puff Enoxaparin Sodium (Lovenox) 40 mg SC DAILY [facility] Last Admin: 02/10/17 11:20 Dose: 40 mg Piperacillin Sod/Tazobactam Sod (Zosyn 3.375 Gm Iv Premix) 3.375 gm in 50 mls @ 100 mls/hr IVPB Q6H [facility] Last Admin: 02/10/17 11:20 Dose: 100 mls/hr Vancomycin/Sodium Chloride (Vancomycin 1 Gm/Ns 200 Ml) 1 gm in 200 mls @ 133 mls/hr IVPB Q24H [facility] Stop: 02/13/17 16:01 Last Admin: 02/09/17 16:56 Dose: 133 mls/hr Insulin Human Regular (Novolin R) 0 unit SC ACHS [facility] PRN Reason: Protocol Last Admin: 02/10/17 12:02 Dose: Not Given Mupirocin (Bactroban Ointment) 0 gm TOP BID [facility] Last Admin: 02/10/17 11:23 Dose: Not Given Oxycodone/Acetaminophen (Percocet 5/325 Mg Tab) 1 tab PO Q4H PRN PRN Reason: Pain, moderate (4-7) Stop: 02/10/17 19:56 Last Admin: 02/10/17 11:18 Dose: 1 tab Pantoprazole Sodium (Protonix Inj) 40 mg IVP DAILY [facility] Last Admin: 02/10/17 11:18 Dose: 40 mg - Labs Labs: 02/10/17 12:23 02/10/17 12:23 - Constitutional Appears: Well, Non-toxic, No Acute Distress - Extremities Exam Additional comments: right foot focused: Vasc: lightly palpable DP and PT pulses, CFT < 3 sec to all digits, TG wnl Neuro: grossly intact derm: no edema, no erythema, superficial ulceration to posterior heel measuring 1cm x 1.5 cm x 0.5 cm with fibrous base, no purulence, no drainage, no ascending cellulitis, no fluctuance, no malodor ortho: mild pain on palpation surrounding the wound - Neurological Exam Neurological Exam: Alert, Awake, Oriented x3 - Psychiatric Exam Psychiatric exam: Normal Affect, Normal Mood Assessment and Plan - Assessment and Plan (Free Text) Assessment: 51 yo male seen at bedside for right foot posterior heel chronic ulceration Plan: patient evaluated and chart reviewed seen at bedside with attending Dr. Barajas labs and vitals reviewed; afebrile, WBC 7.8 applied bactroban, DSD to right foot wound cx= corynebacterium, coag. negative staph f/u bone scan cont. IV abx as per ID Ordered picc line to be placed podiatry will continue to monitor while patient remains in house <Lefty Barajas - Last Filed: 02/11/17 08:42> Objective - Vital Signs/Intake and Output Vital Signs (last 24 hours): Temp Pulse Resp BP Pulse Ox 98.1 F 58 L 20 125/63 98 02/11/17 00:00 02/11/17 00:00 02/11/17 00:00 02/11/17 00:00 02/11/17 00:00 Intake and Output: 02/11/17 02/11/17 06:59 18:59 Intake Total 290 Balance 290 - Medications Medications: Current Medications Albuterol (Ventolin Hfa 90 Mcg/Actuation (8 G)) 1 puff INH RQ4 PRN PRN Reason: Wheezing Last Admin: 02/11/17 07:44 Dose: 1 puff Enoxaparin Sodium (Lovenox) 40 mg SC DAILY [facility] Last Admin: 02/10/17 11:20 Dose: 40 mg Piperacillin Sod/Tazobactam Sod (Zosyn 3.375 Gm Iv Premix) 3.375 gm in 50 mls @ 100 mls/hr IVPB Q6H [facility] Last Admin: 02/11/17 03:52 Dose: 100 mls/hr Vancomycin/Sodium Chloride (Vancomycin 1 Gm/Ns 200 Ml) 1 gm in 200 mls @ 133 mls/hr IVPB Q24H [facility] Stop: 02/13/17 16:01 Last Admin: 02/10/17 16:30 Dose: 133 mls/hr Insulin Human Regular (Novolin R) 0 unit SC ACHS [facility] PRN Reason: Protocol Last Admin: 02/11/17 07:58 Dose: Not Given Mupirocin (Bactroban Ointment) 0 gm TOP BID [facility] Last Admin: 02/10/17 19:00 Dose: 1 applic Oxycodone/Acetaminophen (Percocet 5/325 Mg Tab) 1 tab PO Q4H PRN PRN Reason: Pain, moderate (4-7) Stop: 02/13/17 22:41 Last Admin: 02/11/17 04:27 Dose: 1 tab Pantoprazole Sodium (Protonix Inj) 40 mg IVP DAILY [facility] Last Admin: 02/10/17 11:18 Dose: 40 mg Zolpidem Tartrate (Ambien) 5 mg PO HS PRN PRN Reason: Insomnia Last Admin: 02/10/17 22:43 Dose: 5 mg - Labs Labs: 02/11/17 07:28 02/11/17 07:28 Assessment and Plan - Assessment and Plan (Free Text) Plan: pt seen at bedside .labs and chart reviewed .awaiting bone scan which is underway . to order Picc line . Reminded pt about compliance with teatment plan..
--- NOTE | 2017-02-10 14:40 | CP.PCM.PN ---
Subjective - Date & Time of Evaluation Date of Evaluation: 02/10/17 Time of Evaluation: 14:30 - Subjective Subjective: Progress note. Attending: Dr. Auguste Pt seen and examined at bedside. No acute distress. No events overnight. Pt getting bone scan today. No fevers, chills, vomiting, diarrhea, chest pain, shortness of breath. Objective - Vital Signs/Intake and Output Vital Signs (last 24 hours): Temp Pulse Resp BP Pulse Ox 97.6 F 56 L 20 128/80 97 02/10/17 07:44 02/10/17 07:44 02/10/17 07:44 02/10/17 07:44 02/10/17 07:44 Intake and Output: 02/10/17 02/10/17 06:59 18:59 Intake Total 400 Balance 400 - Medications Medications: Current Medications Albuterol (Ventolin Hfa 90 Mcg/Actuation (8 G)) 1 puff INH RQ4 PRN PRN Reason: Wheezing Last Admin: 02/09/17 07:40 Dose: 1 puff Enoxaparin Sodium (Lovenox) 40 mg SC DAILY [facility] Last Admin: 02/10/17 11:20 Dose: 40 mg Piperacillin Sod/Tazobactam Sod (Zosyn 3.375 Gm Iv Premix) 3.375 gm in 50 mls @ 100 mls/hr IVPB Q6H [facility] Last Admin: 02/10/17 11:20 Dose: 100 mls/hr Vancomycin/Sodium Chloride (Vancomycin 1 Gm/Ns 200 Ml) 1 gm in 200 mls @ 133 mls/hr IVPB Q24H [facility] Stop: 02/13/17 16:01 Last Admin: 02/09/17 16:56 Dose: 133 mls/hr Insulin Human Regular (Novolin R) 0 unit SC ACHS [facility] PRN Reason: Protocol Last Admin: 02/10/17 12:02 Dose: Not Given Mupirocin (Bactroban Ointment) 0 gm TOP BID [facility] Last Admin: 02/10/17 11:23 Dose: Not Given Oxycodone/Acetaminophen (Percocet 5/325 Mg Tab) 1 tab PO Q4H PRN PRN Reason: Pain, moderate (4-7) Stop: 02/10/17 19:56 Last Admin: 02/10/17 11:18 Dose: 1 tab Pantoprazole Sodium (Protonix Inj) 40 mg IVP DAILY [facility] Last Admin: 02/10/17 11:18 Dose: 40 mg - Labs Labs: 02/10/17 12:23 02/10/17 12:23 - Constitutional Appears: Non-toxic, No Acute Distress - Head Exam Head Exam: ATRAUMATIC, NORMAL INSPECTION, NORMOCEPHALIC - Eye Exam Eye Exam: EOMI - ENT Exam ENT Exam: Mucous Membranes Moist - Neck Exam Neck Exam: Full ROM, Normal Inspection - Respiratory Exam Respiratory Exam: NORMAL BREATHING PATTERN. absent: Respiratory Distress - Cardiovascular Exam Cardiovascular Exam: +S1, +S2 - GI/Abdominal Exam GI & Abdominal Exam: Soft, Normal Bowel Sounds. absent: Tenderness - Extremities Exam Extremities Exam: absent: Normal Inspection - Back Exam Back Exam: NORMAL INSPECTION - Neurological Exam Neurological Exam: Alert, Awake, Oriented x3 - Psychiatric Exam Psychiatric exam: Normal Affect, Normal Mood - Skin Skin Exam: Dry, Intact, Normal Color, Warm Assessment and Plan - Assessment and Plan (Free Text) Assessment: This is a 51 yo male with past medical hx of asthma, DM, anxiety, osteo presenting with 1. R/o osteomyelitis -x ray right foot shows diabetic ulcer -blood cultures negative -wound cultures show corynebacterium, coagulase negative staph -podiatry consult. recs appreciated. -ID consult. recs appreciated -will start IV vanco and zosyn -ESR and CRP -percocet for pain 2. hx of DM -ISS 3. hx of asthma -continue albuterol 4. hx of anxiety -continue to monitor 5. GI/DVT ppx -SCDS -protonix discussed with Dr. Auguste
[2017-02-10] MEDS: Vancomycin 1 gm/NS 200 ml 1 GM/200 ML BAG IVPB SCH (16:30)
--- NOTE | 2017-02-10 16:34 | NM ---
PROCEDURE: THREE-PHASE NUCLEAR BONE SCAN RIGHT FOOT HISTORY: osteomyelitis right heel COMPARISON: Right foot radiographs 02/07/2017. TECHNIQUE: Following administration of 23.4 miCu of Tc MDP dynamic, immediate and delayed static images of the right foot were obtained with contralateral comparison views of the left foot as well. FINDINGS: Static phase images demonstrate increased uptake at the level of the right calcaneus posteriorly which only increases on immediate and delayed static images in a pattern as compatible with osteomyelitis in the proper clinical setting. IMPRESSION: Findings likely compatible with osteomyelitis right calcaneus.
[2017-02-11] MEDS: Piperacill/Tazo 3.375gm in Dex 3.375 GM/50 ML BAG IVPB SCH ×4 (03:52→21:17)
[2017-02-11] MEDS: Oxycodone/Acetaminophen 5/325 mg Tab PO PRN ×3 (04:27→21:45)
[2017-02-11 07:37] LABS: BASO # 0.1 K/uL (0.0-0.2); BASO % 0.7 % (0.0-2.0); EOS # 0.1 K/uL (0.0-0.7); EOS % 0.8 % (0.0-4.0); HEMATOCRIT 46.8 % (35.0-51.0); LYMPH # 1.8 K/uL (1.0-4.3); LYMPH % 23.2 % (20.0-40.0); MEAN CELL VOLUME 98.3 fL (80.0-94.0); MEAN CORPUSCULAR HEMOGLOBIN 33.1 pg (27.0-31.0); MEAN CORPUSCULAR HGB CONC 33.7 g/dL (33.0-37.0); MEAN PLATELET VOLUME 8.7 fL (7.2-11.7); MONO # 0.7 K/uL (0.0-0.8); NRBC % 0.1 % (0.0-2.0); WHITE BLOOD COUNT 7.8 K/uL (4.8-10.8)
[2017-02-11] MEDS: Albuterol HFA 90 mcg/actuation (8 g) INH PRN ×2 (07:44→11:27)
[2017-02-11 07:51] LABS: CHLORIDE 102 mmol/L (98-107)
[2017-02-11 07:52] LABS: POTASSIUM 3.3 mmol/L (3.6-5.2); SODIUM 134 mmol/L (132-148)
[2017-02-11 07:54] LABS: AST/SGOT 53 U/L (17-59); BILIRUBIN,TOTAL 1.2 mg/dL (0.2-1.3); CARBON DIOXIDE 24 mmol/L (22-30); GFR AFRICAN-AMERICAN > 60
[2017-02-11 07:55] LABS: ALB/GLOB RATIO 1.3 (1.0-2.1); ALKALINE PHOSPHATASE 64 U/L (38-126); ALT/SGPT 64 U/L (21-72); BLOOD UREA NITROGEN 8 mg/dL (9-20); CALCIUM 9.1 mg/dl (8.6-10.4); GLUCOSE,RANDOM 88 mg/dL (75-110); TOTAL PROTEIN 7.3 g/dL (6.3-8.3)
[2017-02-11] MEDS: (Novolin R) Insulin Human Regular 100 units/ml vial SC SCH ×4 (07:58→21:17)
--- NOTE | 2017-02-11 09:36 | CP.PCM.PN ---
Subjective - Date & Time of Evaluation Date of Evaluation: 02/11/17 Time of Evaluation: 09:35 - Subjective Subjective: PGY-2 medicine note- Dr. Auguste's service Patient seen and examined in no apparent acute distress. Patient states that he can go for outpatient antibiotic infusion. Patient is still awaiting PICC line. Patient denies fevers, chills, nausea, vomiting, chest pain at this time. Objective - Vital Signs/Intake and Output Vital Signs (last 24 hours): Temp Pulse Resp BP Pulse Ox 98 F 65 20 135/89 98 02/11/17 09:00 02/11/17 09:00 02/11/17 09:00 02/11/17 09:00 02/11/17 09:00 Intake and Output: 02/11/17 02/11/17 06:59 18:59 Intake Total 290 Balance 290 - Medications Medications: Current Medications Albuterol (Ventolin Hfa 90 Mcg/Actuation (8 G)) 1 puff INH RQ4 PRN PRN Reason: Wheezing Last Admin: 02/11/17 07:44 Dose: 1 puff Enoxaparin Sodium (Lovenox) 40 mg SC DAILY [facility] Last Admin: 02/10/17 11:20 Dose: 40 mg Piperacillin Sod/Tazobactam Sod (Zosyn 3.375 Gm Iv Premix) 3.375 gm in 50 mls @ 100 mls/hr IVPB Q6H [facility] Last Admin: 02/11/17 03:52 Dose: 100 mls/hr Vancomycin/Sodium Chloride (Vancomycin 1 Gm/Ns 200 Ml) 1 gm in 200 mls @ 133 mls/hr IVPB Q24H [facility] Stop: 02/13/17 16:01 Last Admin: 02/10/17 16:30 Dose: 133 mls/hr Insulin Human Regular (Novolin R) 0 unit SC ACHS [facility] PRN Reason: Protocol Last Admin: 02/11/17 07:58 Dose: Not Given Mupirocin (Bactroban Ointment) 0 gm TOP BID [facility] Last Admin: 02/10/17 19:00 Dose: 1 applic Oxycodone/Acetaminophen (Percocet 5/325 Mg Tab) 1 tab PO Q4H PRN PRN Reason: Pain, moderate (4-7) Stop: 02/13/17 22:41 Last Admin: 02/11/17 04:27 Dose: 1 tab Pantoprazole Sodium (Protonix Inj) 40 mg IVP DAILY [facility] Last Admin: 02/10/17 11:18 Dose: 40 mg Potassium Chloride (Potassium Chloride Oral Soln) 40 meq PO ONCE ONE Stop: 02/11/17 09:46 Zolpidem Tartrate (Ambien) 5 mg PO HS PRN PRN Reason: Insomnia Last Admin: 02/10/17 22:43 Dose: 5 mg - Labs Labs: 02/11/17 07:28 02/11/17 07:28 - Constitutional Appears: Non-toxic, No Acute Distress - Head Exam Head Exam: ATRAUMATIC - Eye Exam Eye Exam: EOMI, Normal appearance, PERRL - ENT Exam ENT Exam: Mucous Membranes Moist - Neck Exam Neck Exam: Full ROM - Respiratory Exam Respiratory Exam: NORMAL BREATHING PATTERN. absent: Wheezes - Cardiovascular Exam Cardiovascular Exam: +S1, +S2 - GI/Abdominal Exam GI & Abdominal Exam: Soft, Normal Bowel Sounds - Extremities Exam Extremities Exam: Full ROM Additional comments: sensation intact; very dry, no apparent purulent discharge, no erythema - Back Exam Back Exam: Full ROM - Neurological Exam Neurological Exam: Alert, Awake, Oriented x3 - Psychiatric Exam Psychiatric exam: Normal Affect, Normal Mood - Skin Skin Exam: Dry, Normal Color, Warm Assessment and Plan - Assessment and Plan (Free Text) Assessment: 1. R/O Osteomyelitis -x ray right foot shows diabetic ulcer -blood cultures negative -wound cultures show corynebacterium, coagulase negative staph -podiatry consult. continue wound care management. F/U recommendations -ID on the case- F/U recommendations -will start IV vanco and zosyn -Vanc trough less than 5. Will likely need to increase dosing. Check next trough level. -ESR 7 ( nml) and CRP 5.09 (elevated) -Percocet for pain 2. Hx of DM -ISS -Accuchecks 3. Hx of asthma -continue albuterol -oxygen therapy as needed 4. Hx of anxiety -continue to monitor -zolpidem at night 5. GI/DVT ppx -SCDS -protonix Patient will need a script for antibiotics upon discharge. Discussed with Dr. Auguste.
[2017-02-11] MEDS: Enoxaparin 40 mg Syringe SC SCH (10:22)
[2017-02-11] MEDS ORDERED: Potassium Chloride 20 mEq/15 ml LIQ UD PO ONE (10:30)
--- NOTE | 2017-02-11 10:33 | CP.PCM.PN ---
Subjective - Date & Time of Evaluation Date of Evaluation: 02/11/17 Time of Evaluation: 10: - Subjective Subjective: 51 y/o male patient seen at bedside for right posterior foot superficial ulceration. Patient appears resting comfortably in NAD and AAOx3. Patient denies any pain in his feet. Patient denies any other pedal complaints at this time. Dressing remains c/d/i. Patient states he had a bone scan done yesterday. Objective - Vital Signs/Intake and Output Vital Signs (last 24 hours): Temp Pulse Resp BP Pulse Ox 98 F 65 20 135/89 98 02/11/17 09:00 02/11/17 09:00 02/11/17 09:00 02/11/17 09:00 02/11/17 09:00 Intake and Output: 02/11/17 02/11/17 06:59 18:59 Intake Total 290 Balance 290 - Medications Medications: Current Medications Albuterol (Ventolin Hfa 90 Mcg/Actuation (8 G)) 1 puff INH RQ4 PRN PRN Reason: Wheezing Last Admin: 02/11/17 07:44 Dose: 1 puff Enoxaparin Sodium (Lovenox) 40 mg SC DAILY [facility] Last Admin: 02/11/17 10:22 Dose: 40 mg Piperacillin Sod/Tazobactam Sod (Zosyn 3.375 Gm Iv Premix) 3.375 gm in 50 mls @ 100 mls/hr IVPB Q6H [facility] Last Admin: 02/11/17 03:52 Dose: 100 mls/hr Vancomycin/Sodium Chloride (Vancomycin 1 Gm/Ns 200 Ml) 1 gm in 200 mls @ 133 mls/hr IVPB Q24H [facility] Stop: 02/13/17 16:01 Last Admin: 02/10/17 16:30 Dose: 133 mls/hr Insulin Human Regular (Novolin R) 0 unit SC ACHS [facility] PRN Reason: Protocol Last Admin: 02/11/17 07:58 Dose: Not Given Mupirocin (Bactroban Ointment) 0 gm TOP BID [facility] Last Admin: 02/10/17 19:00 Dose: 1 applic Oxycodone/Acetaminophen (Percocet 5/325 Mg Tab) 1 tab PO Q4H PRN PRN Reason: Pain, moderate (4-7) Stop: 02/13/17 22:41 Last Admin: 02/11/17 04:27 Dose: 1 tab Pantoprazole Sodium (Protonix Inj) 40 mg IVP DAILY [facility] Last Admin: 02/11/17 10:23 Dose: 40 mg Zolpidem Tartrate (Ambien) 5 mg PO HS PRN PRN Reason: Insomnia Last Admin: 02/10/17 22:43 Dose: 5 mg - Labs Labs: 02/11/17 07:28 02/11/17 07:28 - Constitutional Appears: Well, Non-toxic, No Acute Distress - Extremities Exam Additional comments: right foot focused: Vasc: lightly palpable DP and PT pulses, CFT < 3 sec to all digits, TG wnl Neuro: grossly intact derm: no edema, no erythema, superficial ulceration to posterior heel measuring 1cm x 0.5 cm x 0.1 cm with fibrous base, no purulence, no drainage, no ascending cellulitis, no fluctuance, no malodor ortho: mild pain on palpation surrounding the wound - Neurological Exam Neurological Exam: Alert, Awake, Oriented x3 - Psychiatric Exam Psychiatric exam: Normal Affect, Normal Mood Assessment and Plan - Assessment and Plan (Free Text) Assessment: 51 yo male seen at bedside for right foot posterior heel chronic ulceration, clay grade 1 Plan: patient evaluated and chart reviewed discussed in detail with attending Dr. Barajas labs and vitals reviewed; afebrile, WBC 7.8 applied bactroban, DSD to right foot wound cx= corynebacterium, coag. negative staph bone scan results- positive OM of posterior calcaneus Right foot cont. IV abx as per ID Ordered picc line to be placed podiatry will continue to monitor while patient remains in house
[2017-02-11] MEDS: Vancomycin 1 gm/NS 200 ml 1 GM/200 ML BAG IVPB SCH (21:00)
[2017-02-12] MEDS: Piperacill/Tazo 3.375gm in Dex 3.375 GM/50 ML BAG IVPB SCH ×2 (03:33→11:03)
[2017-02-12] MEDS: Oxycodone/Acetaminophen 5/325 mg Tab PO PRN ×2 (03:53→11:02)
[2017-02-12 07:46] LABS: BASO # 0.1 K/uL (0.0-0.2); BASO % 0.9 % (0.0-2.0); EOS % 0.5 % (0.0-4.0); HEMATOCRIT 46.8 % (35.0-51.0); LYMPH # 1.9 K/uL (1.0-4.3); LYMPH % 21.5 % (20.0-40.0); MEAN CELL VOLUME 98.7 fL (80.0-94.0); MEAN CORPUSCULAR HEMOGLOBIN 33.3 pg (27.0-31.0); MEAN CORPUSCULAR HGB CONC 33.7 g/dL (33.0-37.0); MONO % 10.8 % (0.0-10.0); NRBC % 0.1 % (0.0-2.0); RED CELL DISTRIBUTION WIDTH 13.1 % (11.5-14.5); WHITE BLOOD COUNT 8.9 K/uL (4.8-10.8)
[2017-02-12] MEDS: Albuterol HFA 90 mcg/actuation (8 g) INH PRN (07:58)
[2017-02-12] MEDS: (Novolin R) Insulin Human Regular 100 units/ml vial SC SCH ×2 (08:05→12:30)
[2017-02-12 08:06] LABS: CHLORIDE 101 mmol/L (98-107); SODIUM 136 mmol/L (132-148)
[2017-02-12 08:09] LABS: ALB/GLOB RATIO 1.3 (1.0-2.1); ALKALINE PHOSPHATASE 68 U/L (38-126); ALT/SGPT 59 U/L (21-72); AST/SGOT 41 U/L (17-59); BILIRUBIN,TOTAL 1.1 mg/dL (0.2-1.3); BLOOD UREA NITROGEN 11 mg/dL (9-20); CARBON DIOXIDE 25 mmol/L (22-30); GFR AFRICAN-AMERICAN > 60; TOTAL PROTEIN 7.5 g/dL (6.3-8.3)
[2017-02-12 08:10] LABS: CALCIUM 9.1 mg/dl (8.6-10.4); GLUCOSE,RANDOM 86 mg/dL (75-110); MAGNESIUM 2.1 mg/dL (1.6-2.3); PHOSPHOROUS 3.8 mg/dL (2.5-4.5)
[2017-02-12 08:40] VITALS: BP 142/99; PULSE 63; RESP 18; TEMP 98; O2SAT 95
--- NOTE | 2017-02-12 09:41 | CP.PCM.PN ---
Subjective - Date & Time of Evaluation Date of Evaluation: 02/12/17 Time of Evaluation: 07:36 - Subjective Subjective: PGY 2 Med Note- Dr. Auguste's service Pt seen and examined in no apparent acute distress. Patient extremely angry that he did not receive a PICC line yesterday. He feels that he was lied to. He is demanding to know why the line was not placed. Patient denies subjective fevers or chills, chest pain, headaches , nausea, vomiting or diarrhea at this time. Objective - Vital Signs/Intake and Output Vital Signs (last 24 hours): Temp Pulse Resp BP Pulse Ox 98 F 63 18 142/99 H 95 02/12/17 08:39 02/12/17 08:39 02/12/17 08:39 02/12/17 08:39 02/12/17 08:39 Intake and Output: 02/12/17 02/12/17 06:59 18:59 Intake Total 290 Balance 290 - Medications Medications: Current Medications Albuterol (Ventolin Hfa 90 Mcg/Actuation (8 G)) 1 puff INH RQ4 PRN PRN Reason: Wheezing Last Admin: 02/12/17 07:58 Dose: 1 puff Enoxaparin Sodium (Lovenox) 40 mg SC DAILY [facility] Last Admin: 02/11/17 10:22 Dose: 40 mg Piperacillin Sod/Tazobactam Sod (Zosyn 3.375 Gm Iv Premix) 3.375 gm in 50 mls @ 100 mls/hr IVPB Q6H [facility] Last Admin: 02/12/17 03:33 Dose: 100 mls/hr Vancomycin/Sodium Chloride (Vancomycin 1 Gm/Ns 200 Ml) 1 gm in 200 mls @ 133 mls/hr IVPB Q12 [facility] Stop: 02/16/17 22:01 Last Admin: 02/11/17 21:00 Dose: 133 mls/hr Insulin Human Regular (Novolin R) 0 unit SC ACHS [facility] PRN Reason: Protocol Last Admin: 02/12/17 08:05 Dose: Not Given Mupirocin (Bactroban Ointment) 0 gm TOP BID [facility] Last Admin: 02/11/17 17:17 Dose: 1 applic Oxycodone/Acetaminophen (Percocet 5/325 Mg Tab) 1 tab PO Q4H PRN PRN Reason: Pain, moderate (4-7) Stop: 02/13/17 22:41 Last Admin: 02/12/17 03:53 Dose: 1 tab Pantoprazole Sodium (Protonix Inj) 40 mg IVP DAILY [facility] Last Admin: 02/11/17 10:23 Dose: 40 mg Zolpidem Tartrate (Ambien) 5 mg PO HS PRN PRN Reason: Insomnia Last Admin: 02/11/17 21:45 Dose: 5 mg - Labs Labs: 02/12/17 07:33 02/12/17 07:33 - Constitutional Appears: Non-toxic, No Acute Distress - Head Exam Head Exam: ATRAUMATIC, NORMAL INSPECTION, NORMOCEPHALIC - Eye Exam Eye Exam: EOMI, Normal appearance Pupil Exam: NORMAL ACCOMODATION, PERRL - ENT Exam ENT Exam: Mucous Membranes Moist - Neck Exam Neck Exam: Full ROM - Respiratory Exam Respiratory Exam: NORMAL BREATHING PATTERN - Cardiovascular Exam Cardiovascular Exam: +S1, +S2 - GI/Abdominal Exam GI & Abdominal Exam: Soft, Normal Bowel Sounds - Extremities Exam Extremities Exam: Full ROM Additional comments: sensation intact; very dry, no apparent purulent discharge, no erythema; wrapped - Back Exam Back Exam: Full ROM - Neurological Exam Neurological Exam: Alert, Awake, Oriented x3 - Psychiatric Exam Psychiatric exam: Normal Affect, Normal Mood - Skin Skin Exam: Dry, Normal Color, Warm Assessment and Plan - Assessment and Plan (Free Text) Assessment: 1. R/O Osteomyelitis -x ray right foot shows diabetic ulcer -blood cultures negative -wound cultures show corynebacterium, coagulase negative staph -podiatry consult. continue wound care management. F/U recommendations -ID on the case- F/U recommendations -will start IV vanco and zosyn. Needs snf antibiotics -Vanc trough less than 5 on 02/10. Patient will need vanc trugh checks before every fourth dose of vancomycin on discharge. -ESR 7 (nml) and CRP 5.09 (elevated) -Percocet for pain 2. Hx of DM -ISS -Accuchecks 3. Hx of asthma -continue albuterol -oxygen therapy as needed 4. Hx of anxiety -continue to monitor -zolpidem at night 5. GI/DVT ppx -SCDS -protonix Patient to be discharged home. Patient is medically stable for discharge home. Patient to follow up with Dr. Barajas's office within one week. Patient states that he has an appointment tomorrow. He should keep that appointment. Patient to follow up with primary medical doctor within one week. Patient may resume home medications. He will start Vancomycin, 1 gm Q24H everyday for 4 weeks. He will start Ciprofloxacin 500 mg , once PO BID for 4 weeks as well. Patient should eat a probiotic yogurt daily. Patient should check a vancomycin trough at least one hour before each fourth dose of vancomycin. He will be provided with a prescription. If symptoms return, go to the emergency room. Instructions explained to patient who is aware. Discussed with Dr. Auguste.
[2017-02-12] MEDS: Vancomycin 1 gm/NS 200 ml 1 GM/200 ML BAG IVPB SCH (09:46)
[2017-02-12] MEDS: Enoxaparin 40 mg Syringe SC SCH (09:47)
--- NOTE | 2017-02-12 11:32 | CP.PCM.PN ---
Subjective - Date & Time of Evaluation Date of Evaluation: 02/12/17 Time of Evaluation: 11:29 - Subjective Subjective: 51 y/o male patient seen at bedside for right posterior foot superficial ulceration. Patient appears resting comfortably in NAD and AAOx3. Patient denies any pain in his feet. Patient denies any other pedal complaints at this time. Dressing remains c/d/i. Objective - Vital Signs/Intake and Output Vital Signs (last 24 hours): Temp Pulse Resp BP Pulse Ox 98 F 63 18 142/99 H 95 02/12/17 08:39 02/12/17 08:39 02/12/17 08:39 02/12/17 08:39 02/12/17 08:39 Intake and Output: 02/12/17 02/12/17 06:59 18:59 Intake Total 290 Balance 290 - Medications Medications: Current Medications Albuterol (Ventolin Hfa 90 Mcg/Actuation (8 G)) 1 puff INH RQ4 PRN PRN Reason: Wheezing Last Admin: 02/12/17 07:58 Dose: 1 puff Enoxaparin Sodium (Lovenox) 40 mg SC DAILY [facility] Last Admin: 02/12/17 09:47 Dose: 40 mg Piperacillin Sod/Tazobactam Sod (Zosyn 3.375 Gm Iv Premix) 3.375 gm in 50 mls @ 100 mls/hr IVPB Q6H [facility] Last Admin: 02/12/17 11:03 Dose: 100 mls/hr Vancomycin/Sodium Chloride (Vancomycin 1 Gm/Ns 200 Ml) 1 gm in 200 mls @ 133 mls/hr IVPB Q12 [facility] Stop: 02/16/17 22:01 Last Admin: 02/12/17 09:46 Dose: 133 mls/hr Insulin Human Regular (Novolin R) 0 unit SC ACHS [facility] PRN Reason: Protocol Last Admin: 02/12/17 08:05 Dose: Not Given Mupirocin (Bactroban Ointment) 0 gm TOP BID [facility] Last Admin: 02/12/17 09:48 Dose: Not Given Oxycodone/Acetaminophen (Percocet 5/325 Mg Tab) 1 tab PO Q4H PRN PRN Reason: Pain, moderate (4-7) Stop: 02/13/17 22:41 Last Admin: 02/12/17 11:02 Dose: 1 tab Pantoprazole Sodium (Protonix Inj) 40 mg IVP DAILY [facility] Last Admin: 02/12/17 09:47 Dose: 40 mg Zolpidem Tartrate (Ambien) 5 mg PO HS PRN PRN Reason: Insomnia Last Admin: 02/11/17 21:45 Dose: 5 mg - Labs Labs: 02/12/17 07:33 02/12/17 07:33 - Constitutional Appears: Well, Non-toxic, No Acute Distress - Extremities Exam Additional comments: right foot focused: Vasc: lightly palpable DP and PT pulses, CFT < 3 sec to all digits, TG wnl Neuro: grossly intact derm: no edema, no erythema, superficial ulceration to posterior heel measuring 0.5cm x 0.5 cm x 0.1 cm with fibrous base, no purulence, no drainage, no ascending cellulitis, no fluctuance, no malodor ortho: mild pain on palpation surrounding the wound - Neurological Exam Neurological Exam: Alert, Awake, Oriented x3 - Psychiatric Exam Psychiatric exam: Normal Affect, Normal Mood Assessment and Plan - Assessment and Plan (Free Text) Assessment: 51 yo male seen at bedside for right foot posterior heel chronic ulceration, improving Plan: patient evaluated and chart reviewed discussed in detail with attending Dr. Barajas labs and vitals reviewed; afebrile, WBC 8.9 applied bactroban, DSD to right foot wound cx= corynebacterium, coag. negative staph bone scan results- positive OM of posterior calcaneus Right foot cont. IV abx as per ID picc line to be placed once patient gets picc line, stable from podiatry standpoint patient instructed to follow up with Dr. Barajas as outpatient podiatry will continue to monitor while patient remains in house
--- NOTE | 2017-02-12 13:13 | RAD ---
PROCEDURE: CHEST RADIOGRAPH, 1 VIEW HISTORY: verify right PICC COMPARISON: 02/07/2017 FINDINGS: LUNGS: Clear. PLEURA: No pneumothorax or pleural fluid seen. CARDIOVASCULAR: Normal heart size. No congestive change. New right PICC catheter terminating in the region of the superior vena cava. OSSEOUS STRUCTURES: No significant abnormalities. VISUALIZED UPPER ABDOMEN: Normal. OTHER FINDINGS: None. IMPRESSION: New right PICC catheter terminating in the region of the superior vena cava.
--- NOTE | 2017-02-13 06:40 | DS ---
The patient is a 54-year-old male who came with diabetic foot and was complaining generalized foot. The patient was treated with IV antibiotics, improved and discharged . Andres Auguste MD
== END 2017-02-12 14:30 | disposition home or self-care (01) | DRG 294 ==
LOC: C.ER 14:38 → C.9E 15:53 → C.3T 16:40
PROVIDERS: ADMIT Internal Medicine Pulmonary Disease; ATTEND Internal Medicine Pulmonary Disease
PROC: 02HV33Z Insertion of Infusion Device into Superior Vena Cava, Percutaneous Approach (ICD-10-PCS; principal; 2017-02-12)
DX: E10.69 Type 1 diabetes mellitus with other specified complication (principal); M86.9 Osteomyelitis, unspecified; E10.621 Type 1 diabetes mellitus with foot ulcer; I10 Essential (primary) hypertension; L97.519 Non-pressure chronic ulcer of other part of right foot with unspecified severity; D64.9 Anemia, unspecified; F41.9 Anxiety disorder, unspecified; J45.909 Unspecified asthma, uncomplicated; F17.210 Nicotine dependence, cigarettes, uncomplicated; E03.9 Hypothyroidism, unspecified; Z91.14 Patient's other noncompliance with medication regimen

== ENCOUNTER 2018-05-07 18:29 | Inpatient (IN) | payer MEDICAID ==
[2018-05-07 18:30] VITALS: BMI 35.5
--- NOTE | 2018-05-07 19:22 | C.PDOC ---
History Of Present Illness Patient presents to the ER with a complaint of right foot pain and foul smelling nonhealing right heel ulcer that has been worsening over weeks. Patient is an insulin dependent diabetic. He reports having pain with ambulation. Denies fever or chills. Time Seen by Provider: 05/07/18 19:21 Chief Complaint (Nursing): Lower Extremity Problem/Injury History Per: Patient History/Exam Limitations: no limitations Onset/Duration Of Symptoms: Days Current Symptoms Are (Timing): Still Present Severity: Moderate Pain Scale Rating Of: 4 Recent travel outside of the [place]: No Past Medical History Reviewed: Historical Data, Nursing Documentation, Vital Signs - Medical History PMH: Anemia, Anxiety, Asthma, Bronchitis, Cardia Arrhythmia (SVT), Diabetes, HTN Denies: Arthritis, CHF, COPD, Depression, Hypercholesterolemia, Hypot hyroidism, Chronic Kidney Disease, Rheumatoid Arthritis - [facility] Procedures DESTRUC-FOOT JT LES NEC (09/13/14) EXCIS DEBRIDE OF WOUND, INFECT, OR BURN (05/20/13) FOOT SYNOVECTOMY (09/13/14) INCIS W REM OF FORIEGN BODY OR DEV FROM SKIN & SUBCUT TISSUE (08/20/13) INJECT ANTIBIOTIC (10/06/13) INJECT/INFUSE NEC (09/10/13) INSERTION OF INFUSION DEV INTO SUP VENA CAVA, PERC APPROACH (02/07/17) LOC EXC BONE LESION NEC (11/12/13) LOC EXC LES METATAR/TAR (04/01/13) OTHER SUTURE OF TENDON (09/13/14) PHYSICAL THERAPY NEC (05/12/14) REPAIR OF HAMMER TOE (04/01/13) VENOUS CATHETERIZATION NEC (08/20/13) Family History: States: No Known Family Hx - Social History Hx Tobacco Use: Yes Hx Alcohol Use: No Hx Substance Use: No - Immunization History Hx Tetanus Toxoid Vaccination: No Hx Influenza Vaccination: Yes (2017) Hx Pneumococcal Vaccination: No Review Of Systems Constitutional: Negative for: Fever, Chills Cardiovascular: Negative for: Chest Pain, Palpitations Respiratory: Negative for: Cough, Shortness of Breath Gastrointestinal: Negative for: Nausea, Vomiting Musculoskeletal: Positive for: Foot Pain (right) Skin: Positive for: Other (Right heel ulcer) Neurological: Negative for: Weakness, Numbness Physical Exam - Physical Exam Appears: Non-toxic Skin: Warm, Dry Head: Normacephalic Eye(s): bilateral: Normal Inspection Oral Mucosa: Dry Neck: Trachea Midline, Supple Chest: Symmetrical, No Tenderness Cardiovascular: Rhythm Regular Respiratory: No Rales, No Rhonchi, No Wheezing Gastrointestinal/Abdominal: Soft, No Tenderness Back: No CVA Tenderness Extremity: Tenderness, Pedal Edema, Capillary Refill (<2 seconds), Swelling, Other (Foul smelling nonhealing right heel ulcer) Extremity: Right: Limited ROM To Joint Pulses: Left Dorsalis Pedis: Normal, Right Dorsalis Pedis: Normal Neurological/Psych: Oriented x3 Gait: With Assistance ED Course And Treatment - Laboratory Results Result Diagrams: 05/07/18 20:08 05/07/18 20:08 ECG: Interpreted By Me, Viewed By Me ECG Rhythm: Sinus Rhythm (71), Nonspecific Changes O2 Sat by Pulse Oximetry: 98 Pulse Ox Interpretation: Normal - Other Rad foot/ankle X-Ray: Read By Radiologist Interpretation: Report Submission Date: May 07, 2018 9:36:03 PM EST. Name:ROBYN POTTER Exam Date:May 07, 2018 8:40:33 PM EST. Modality Type:CT\OT. Description:CT - FOOT. Gender:M Laterality:Not applicable. :61 Referring Physician:Parish Jones). EXAM: CT Foot, right, without IV contrast. CLINICAL HISTORY: ULCER RT HEEL. TECHNIQUE: Axial computed tomography images of the right foot without intravenous contrast. 288 mGy-cm. CONTRAST: None. COMPARISON: None provided. FINDINGS: BONES: No acute fracture is evident. No aggressive appearing osseous lesion. Poorly defined somewhat linear zones of radiolucency extending from the external border of the calcaneus into the osseous substance of the calcaneus for a distance of approximately 3.1 cm. This is thought consistent with osteolysis caused by osteomyelitis. Incidental note is made of a 1.0 cm calcaneal spur arising from the plantar aspect. JOINTS: The joint spaces appear within normal limits. No dislocation. SOFT TISSUES: No radiopaque foreign body is seen. There is subcutaneous edema seen within the medial and lateral malleolus of the ankle and throughout the foot. There is an apparent soft tissue ulceration along the posterior superior heel. No subcutaneous gas is detected. IMPRESSION: 1. Soft tissue ulceration in the posterior superior aspect of the heel. 2. Findings involving the posterior calcaneus as described above consistent with osteomyelitic induced osteolysis. 3. Subcutaneous edema throughout the ankle and foot. . Electronically signed on May 07, 2018 9:36:03 PM EST by: Saqib Garay M.D., HYACINTH Certified By ABR & CBC[employer]. Fellowship Trained MRI and CT Specialist. Progress Note: EKG, blood work, urinalysis, CT lower right extremity and CXR ordered. IV fluids administered. spoke with the podiatry resident. Will come and see the pt in the ed. 9;20 pm podiatry resident at bedside Disposition Discussed With Dr.: Andres Auguste Comment: accepted the pt on his service and took over the care at 9:47 PM Doctor Will See Patient In The: Hospital Counseled Patient/Family Regarding: Studies Performed, Diagnosis - Disposition Disposition: HOSPITALIZED Disposition Time: 19:21 Condition: FAIR Forms: [facility] (Brazilian) - Clinical Impression Clinical Impression: Cellulitis, Osteomyelitis of ankle - Scribe Statement The provider has reviewed the documentation as recorded by the Scribnegar Mccabe All medical record entries made by the Jarrettibnegar were at my direction and personally dictated by me. I have reviewed the chart and agree that the record accurately reflects my personal performance of the history, physical exam, medical decision making, and the department course for this patient. I have also personally directed, reviewed, and agree with the discharge instructions and disposition. Decision To Admit - Pt Status Changed To: Hospital Disposition Of: Inpatient - Admit Certification Admit to Inpatient:: After my assessment, the patient will require hospitalization for at least two midnights. This is because of the severity of symptoms shown, intensity of services needed, and/or the medical risk in this pa tient being treated as an outpatient. - InPatient: Physician Admission Certification: I certify that this patient requires 2 or more midnights of care for the following reason:: After my assessment, the patient will require hospitalization for at least two midnights. This is because of the severity of symptoms shown, intensity of services needed, and/or the medical risk in this patient being treated as an outpatient. - . Bed Request Type: Regular Admitting Physician: Andres Auguste Patient Diagnosis: Cellulitis, Osteomyelitis of ankle
[2018-05-07] MEDS ORDERED: Sodium Chloride 0.9% 1,000 ML IV ONE (19:54)
[2018-05-07 20:15] LABS: BASO % 0.7 % (0.0-2.0); EOS # 0.1 K/uL (0.0-0.7); EOS % 2.3 % (0.0-4.0); HEMOGLOBIN 12.6 g/dL (12.0-18.0); LYMPH # 2.6 K/uL (1.0-4.3); LYMPH % 45.2 % (20.0-40.0); MEAN CELL VOLUME 93.7 fL (80.0-94.0); MEAN CORPUSCULAR HEMOGLOBIN 31.2 pg (27.0-31.0); MEAN CORPUSCULAR HGB CONC 33.3 g/dL (33.0-37.0); MEAN PLATELET VOLUME 8.2 fL (7.2-11.7); MONO # 0.4 K/uL (0.0-0.8); MONO % 7.7 % (0.0-10.0); NEUT # 2.6 K/uL (1.8-7.0); NEUT % 44.1 % (50.0-75.0); NRBC % 0.1 % (0.0-2.0); RBC 4.03 Mil/uL (4.40-5.90); RED CELL DISTRIBUTION WIDTH 13.1 % (11.5-14.5); WHITE BLOOD COUNT 5.8 K/uL (4.8-10.8)
[2018-05-07 20:23] LABS: INR 1.1; PROTHROMBIN TIME 11.9 SECONDS (9.7-12.2)
[2018-05-07 20:26] LABS: ALB/GLOB RATIO 1.3 (1.0-2.1); ALBUMIN 4.1 g/dL (3.5-5.0); ALT/SGPT 29 U/L (21-72); AST/SGOT 48 U/L (17-59); BLOOD UREA NITROGEN 10 mg/dL (9-20); CALCIUM 8.8 mg/dl (8.6-10.4); GFR NON-AFRICAN AMERICAN > 60; LIPASE 55 U/L (23-300)
[2018-05-07 20:42] LABS: VENOUS BLOOD GAS BASE EXCESS 3.9 mmol/L (0.0-2.0); VENOUS BLOOD GAS PCO2 51 mmHg (40-60); VENOUS BLOOD GAS PO2 46 mm/Hg (30-55); VENOUS BLOOD PH 7.38 (7.32-7.43)
[2018-05-07] MEDS ORDERED: Sodium Chloride 0.9% 1,000 ML ONE (20:52)
[2018-05-07] MEDS ORDERED: Vancomycin 1 GM 1 GM/250 ML BAG IVPB STA (21:50)
[2018-05-07] MEDS ORDERED: Piperacillin/Tazobact 3.375 gm 100 ML IVPB STA (21:50)
--- NOTE | 2018-05-07 21:58 | CP.PCM.CON ---
History of Present Illness - History of Present Illness History of Present Illness: Podiatry Consult Note- Dr. Colunga 52 y/o male with PMH of Anemia, Anxiety, Asthma, Bronchitis, Cardiac Arrhythmia (SVT), Diabetes, HTN seen and evaluated in the ED for right heel ulceration (Might be infected), abscess with underlying chronic OM. Patient is known to podiatry service and Dr. Colunga. Patient has a history of non-compliance. ued to [facility] outpatient wound care appointments. Patient was diagnosed with OM of right heel and was treated with IV abx and local wound care has been provided by Dr. Colunga in the past. He underwent several foot surgeries bilateral over the last years. Patient states that his right heel started to get pain few days ago. He states that the pain is 10/10. He states that the ulcer in the back of his right heel is draining pus. Patient reports that he saw Dr. Tran week ago. Patient states that he has episodes of chills since 3 days. He denies nausea, fever, shortness of breath, chest pains or diarrhea. He denies any other pedal complaint at this time. PMH: Anemia, Anxiety, Asthma, Bronchitis, Cardiac Arrhythmia (SVT), Diabetes, HTN. PSH: Multiple foot surgeries b/l. Allergies: NKDA. Social Hx: Tobacco smoker, Denies EtOH or Illicit drug use. Review of Systems - Review of Systems Review of Systems: As per HPI - Constitutional Constitutional: As Per HPI Past Patient History - Infectious Disease Hx of Infectious Diseases: None - Tetanus Immunizations Tetanus Immunization: Unknown - Past Medical History & Family History Past Medical History?: Yes - Past Social History Smoking Status: Light Smoker < 10 Cigarettes Daily - CARDIAC Hx Cardia Arrhythmia: Yes (SVT) Hx Congestive Heart Failure: No Hx Hypercholesterolemia: No Hx Hypertension: Yes - PULMONARY Hx Asthma: Yes Hx Bronchitis: Yes Hx Chronic Obstructive Pulmonary Disease (COPD): No - NEUROLOGICAL Hx Neurological Disorder: No HX Cerebrovascular Accident: No - HEENT Hx HEENT Problems: No - RENAL Hx Chronic Kidney Disease: No - ENDOCRINE/METABOLIC Hx Hypothyroidism: No - HEMATOLOGICAL/ONCOLOGICAL Hx Anemia: Yes - INTEGUMENTARY Hx Dermatological Problems: No Other/Comment: dry skin , hard thick nails both feet - MUSCULOSKELETAL/RHEUMATOLOGICAL Hx Arthritis: No Hx Rheumatoid Arthritis: No - GASTROINTESTINAL Hx Gastrointestinal Disorders: No - GENITOURINARY/GYNECOLOGICAL Hx Genitourinary Disorders: No - PSYCHIATRIC Hx Anxiety: Yes Hx Depression: No Hx Substance Use: No - SURGICAL HISTORY Hx Surgeries: Yes (coty picc line for abx for bone infection) Hx Cataract Extraction: Yes Hx Musculoskeletal Surgery: Yes (JARRED FOOT ) Other/Comment: right foot sx with dr colunga for heel spur, bone removed out of heel and 5th toe bunyon removed. pilonidal cystectomy, left foot surgery 2014 - ANESTHESIA Hx Anesthesia: Yes Hx Anesthesia Reactions: No Hx Malignant Hyperthermia: No Meds Allergies/Adverse Reactions: Allergies Allergy/AdvReac Type Severity Reaction Status Date / Time No Known Allergies Allergy Verified 08/23/17 17:28 Physical Exam - Constitutional Appears: Non-toxic, No Acute Distress - Head Exam Head Exam: ATRAUMATIC, NORMOCEPHALIC - Extremities Exam Additional comments: Right lower extremity focused examination: Vasc: DP/PT pulses are palpable 2/4, Cap refill < 3 sec to all digits, temperature gradient warm to cool from proximal to distal, Moderate non pitting edema with fluctuation of the jd-ulcerative area and the perimalleolar area Neuro: protective sensation diminished, Gross sensation intact. Derm: ulceration to posterior heel measuring 1 cm x 0.5 cm x 0.1 cm with fibrous base, Minimal purulence, No erythema, no erythema, positive fluctuance, Moderate non pitting edema, positive malodor, No tracking or probing to bone noted. MSK: Pain on palpation of the periwound area - Neurological Exam Neurological exam: Alert, Oriented x3 Results - Vital Signs Recent Vital Signs: Last Vital Signs Temp Pulse Resp BP Pulse Ox 98 05/07/18 20:27 - Labs Result Diagrams: 05/07/18 20:08 05/07/18 20:08 Labs: Laboratory Results - last 24 hr 05/07/18 05/07/18 05/07/18 20:08 20:08 20:08 WBC 5.8 RBC 4.03 L Hgb 12.6 Hct 37.7 MCV 93.7 MCH 31.2 H MCHC 33.3 RDW 13.1 Plt Count 202 MPV 8.2 Neut % (Auto) 44.1 L Lymph % (Auto) 45.[address] [place] % (Auto) 7.7 Eos % (Auto) 2.3 Baso % (Auto) 0.7 Neut # (Auto) 2.6 Lymph # (Auto) 2.6 [place] # (Auto) 0.4 Eos # (Auto) 0.1 Baso # (Auto) 0.0 PT 11.9 INR 1.1 APTT 30 pO2 VBG pH VBG pCO2 VBG HCO3 VBG Total CO2 VBG O2 Sat (Calc) VBG Base Excess VBG Potassium Glucose Lactate Sodium 136 Potassium 3.9 Chloride 101 Carbon Dioxide 28 Anion Gap 11 BUN 10 Creatinine 0.9 Est GFR ( Amer) > 60 Est GFR (Non-Af Amer) > 60 Random Glucose 89 Hemoglobin A1c Calcium 8.8 Magnesium 2.0 Total Bilirubin 0.4 AST 48 ALT 29 Alkaline Phosphatase 85 Total Protein 7.3 Albumin 4.1 Globulin 3.2 Albumin/Globulin Ratio 1.3 Lipase 55 Venous Blood Potassium B-Hydroxybutyrate 0.04 05/07/18 05/07/18 20:08 20:15 WBC RBC Hgb Hct MCV MCH MCHC RDW Plt Count MPV Neut % (Auto) Lymph % (Auto) [place] % (Auto) Eos % (Auto) Baso % (Auto) Neut # (Auto) Lymph # (Auto) [place] # (Auto) Eos # (Auto) Baso # (Auto) PT INR APTT pO2 46 VBG pH 7.38 VBG pCO2 51 VBG HCO3 27.5 VBG Total CO2 31.8 H VBG O2 Sat (Calc) 88.6 H VBG Base Excess 3.9 H VBG Potassium 5.2 Glucose 88 Lactate 0.8 Sodium 136.0 Potassium Chloride 107.0 Carbon Dioxide Anion Gap BUN Creatinine Est GFR ( Amer) Est GFR (Non-Af Amer) Random Glucose Hemoglobin A1c 5.2 Calcium Magnesium Total Bilirubin AST ALT Alkaline Phosphatase Total Protein Albumin Globulin Albumin/Globulin Ratio Lipase Venous Blood Potassium 5.2 B-Hydroxybutyrate Assessment & Plan - Assessment and Plan (Free Text) Assessment: 52 y/o male with PMH ofAnemia, Anxiety, Asthma, Bronchitis, Cardiac Arrhythmia (SVT), Diabetes, HTN seen and evaluated in the ED for right heel ulceration (Might be infected), abscess with underlying chronic OM. Plan: Patient seen and evaluated in the ED Discussed plan with attending Dr. Coulnga Charts, labs and vitals reviewed; afebrile, WBCs 5.8 X-rays ordered CT RLE done in the ED; Pending official report Clinically ulceration appears stable but there is swelling and fluctuation surrounding the ulcer suggestive of fluid collection vs abscess. Cleansed ulceration with betadine, dressed with betadine, ABD, and DSD Patient to be WBAT in surgical shoe Ordered surgical shoe. Ordered ID consult. Ordered MRI. Ordered bactroban cream to be added to the dressing tomorrow. Podiatry will follow up the patient while in house. Thank you for allowing us to take part in patient's care. - Date & Time Date: 05/07/18 Time: 21:39
[2018-05-07] MEDS ORDERED: Piperacillin/Tazobact 3.375 gm 100 ML IVPB ONE (22:00)
[2018-05-07] MEDS ORDERED: Vancomycin 1 GM 1 GM/250 ML BAG IVPB ONE (22:47)
[2018-05-07] MEDS ORDERED: Oxycodone/Acetaminophen 5/325 mg Tab PO PRN (22:59)
[2018-05-07] MEDS: Piperacillin/Tazobact 2.275 GM in Sodium Chloride 100 ML IVPB SCH (23:09)
[2018-05-08] MEDS: Piperacillin/Tazobact 2.275 GM in Sodium Chloride 100 ML IVPB SCH ×2 (06:52→19:55)
[2018-05-08] MEDS ORDERED: (Novolog) Insulin Aspart, Recombinant 100 u/ml 10 ml vial SC SCH (07:30)
--- NOTE | 2018-05-08 08:26 | RAD ---
Date of service: 05/07/2018 PROCEDURE: Right Foot Radiographs. HISTORY: R heel infected ulcer COMPARISON: Right foot radiographs 08/23/2017. FINDINGS: BONES: Increasing ovoid lucency is appreciated the posterior calcaneus with the posterior calcaneus again noted flattened. Soft tissue lucency posterior to the calcaneus likely reflects clinically known ulcer. A subtle concavity appears to be developing at the posterior margins of the can calcaneus as well is suspicious for osteomyelitis. Calcification cephalad to the supero posterior margins of the calcaneus reiterated. Large plantar calcaneal spur also evident. Volume loss at the head of the proximal phalanx right 5th digit reiterated. JOINTS: Mild hallux valgus deformity appreciated with reiterated degenerative cortical sclerosis seen throughout the interphalangeal joints and midfoot greater than hindfoot joints as well. No subluxation or dislocation. SOFT TISSUES: Forefoot midfoot dorsal soft tissue edema identified in the interval. OTHER FINDINGS: None. IMPRESSION: Interval increase in bone loss at the posterior calcaneus suspicious for osteomyelitis. Further clinical correlation is advised. No definite acute fracture, dislocation or subluxation right foot. Dorsal forefoot/midfoot soft tissue edema as a identified in the interval. Multifocal degenerative changes are reiterated.
--- NOTE | 2018-05-08 08:29 | RAD ---
Date of service: 05/07/2018 PROCEDURE: Right Ankle Radiographs. HISTORY: R heel infected ulcer COMPARISON: None available. FINDINGS: BONES: No acute fracture or destructive bony lesion identified. Incidental note is made of erosive changes at the posterior calcaneus. Please separate right foot radiographs also performed 05/07/2018 for detailed evaluation. JOINTS: Limited cortical sclerosis appreciate the tibiotalar and subtalar joints compatible with degenerative joint disease. Ankle mortise maintained. Talar dome intact SOFT TISSUES: Small calcification is seen cephalad to the posterior calcaneus once again. Soft tissue edema surrounds the ankle moderately. OTHER FINDINGS: None. IMPRESSION: No acute fracture or dislocation. Limited degenerative joint disease. Soft tissue edema surrounds the ankle moderately. Erosive changes seen at the calcaneus described in separate right foot radiographs 05/07/2018. Please see separate report.
--- NOTE | 2018-05-08 08:39 | CP.PCM.PN ---
Subjective - Date & Time of Evaluation Date of Evaluation: 05/08/18 Time of Evaluation: 08:38 - Subjective Subjective: Podiatry Progress Note - Dr. Barajas 52 y/o male seen in ED this morning for right heel ulceration. He states he is awaiting bed placement upstairs. Says he has some pain in the right heel wound but it is fine at this time. Denies any overnight events. Denies tingling, numbness or burning in the extremities at present. Denies F/C/N/V/CP/SOB Objective - Vital Signs/Intake and Output Vital Signs (last 24 hours): Temp Pulse Resp BP Pulse Ox 98.9 F 115 H 20 114/67 99 05/08/18 07:48 05/08/18 07:48 05/08/18 07:48 05/08/18 07:48 05/08/18 07:48 - Medications Medications: Current Medications Enoxaparin Sodium (Lovenox) 40 mg SC DAILY [facility] Piperacillin Sod/Tazobactam (Sod 2.275 gm/ Sodium Chloride) 100 mls @ 200 mls/hr IVPB Q8H [facility]; Protocol Last Admin: 05/08/18 06:52 Dose: 200 mls/hr Insulin Aspart (Novolog) 0 unit SC ACHS [facility]; Protocol Last Admin: 05/08/18 08:08 Dose: Not Given Mupirocin (Bactroban Ointment) 1 gm TOP DAILY [facility] Oxycodone/Acetaminophen (Percocet 5/325 Mg Tab) 1 tab PO Q4 PRN PRN Reason: Pain Stop: 05/10/18 23:00 - Labs Labs: 05/07/18 20:08 05/07/18 20:08 PT 11.9 SECONDS (9.7-12.2) 05/07/18 20:08 INR 1.1 05/07/18 20:08 APTT 30 SECONDS (21-34) 05/07/18 20:08 - Constitutional Appears: Well, Non-toxic, No Acute Distress - Extremities Exam Additional comments: Right lower extremity focused examination: Vasc: DP/PT pulses are palpable 2/4. Cap refill < 3 sec to all digits. Temperature gradient warm to cool from proximal to distal. Moderate non pitting edema noted to posterior heel Neuro: protective sensation diminished, Gross sensation intact. Derm: Open ulceration to posterior heel measuring 1 cm x 0.5 cm x 0.1 cm with fibrous base. Fluctuance noted jd wound. Minimal purulence expressed on examination. No erythema, no erythema. Positive malodor noted. No tracking or probing to bone noted. MSK: Mild-moderate pain on palpation of the periwound area - Neurological Exam Neurological Exam: Alert, Awake, Oriented x3 - Psychiatric Exam Psychiatric exam: Normal Affect, Normal Mood Assessment and Plan - Assessment and Plan (Free Text) Assessment: 52 y/o male with right heel diabetic ulceration with radiographic osteomyelitis Plan: Patient seen and evaluated in the ED this morning, awaiting bed placement Discussed plan with attending Dr. Barajas X-rays reveal destructive changes at posterior calcaneus, suspicious for osteomyelitis MRI of RLE pending Clinically ulceration appears stable but there is swelling and fluctuance surrounding the ulcer suggestive of fluid collection vs abscess - await MRI results Cleansed ulceration with saline and dressed with bactroban and DSD Patient to be WBAT in surgical shoe ID Dr. Tiwari on board, appreciate recommendations Podiatry will follow up the patient while in house
--- NOTE | 2018-05-08 08:51 | RAD ---
HISTORY: SOB COMPARISON: Chest x-ray performed 02/12/17 TECHNIQUE: Chest, one view. FINDINGS: Examination limited by habitus and patient obliquity. The patient's chin obscures evaluation of the lung apices. LUNGS: Mild bibasilar atelectasis. Please note that chest x-ray has limited sensitivity for the detection of pulmonary masses. PLEURA: No significant pleural effusion identified. No definite pneumothorax . CARDIOVASCULAR: Heart size appears within normal limits. No significant atherosclerotic calcification present. OSSEOUS STRUCTURES: Degenerative changes. VISUALIZED UPPER ABDOMEN: Unremarkable. OTHER FINDINGS: None. IMPRESSION: Mild bibasilar atelectasis.
[2018-05-08] MEDS: Enoxaparin 40 mg Syringe SC SCH (09:21)
[2018-05-08] MEDS ORDERED: Oxycodone/Acetaminophen 5/325 mg Tab ONE (09:22)
--- NOTE | 2018-05-08 09:37 | CT ---
Date of service: 05/07/2018 PROCEDURE: CT RIGHT FOOT WITHOUT CONTRAST 05/07/2018. HISTORY: r heel ulcer, diabetic COMPARISON: Right foot radiographs 05/07/2018, 08/23/2017 and 02/07/2017 TECHNIQUE: A volumetric CT acquisition through the right foot was performed without intravenous contrast with reformatted dataset provided. Contrast Dose: None Radiation dose:Total exam DLP = 288.71 mGy-cm. This CT exam was performed using one or more of the following dose reduction techniques: Automated exposure control, adjustment of the mA and/or kV according to patient size, and/or use of iterative reconstruction technique. FINDINGS: Postop changes are identified at the posterior calcaneus which appears flattened once again status post prior Achilles tendon repair defect from prior screws identified manifest by 2 horizontal lucencies at the posterior calcaneus. These lucencies by radiographs appear more prominent than previously shown in prior right foot radiographs 08/23/2017 and 02/07/2017 both in the current CT and in recent right foot radiograph also performed 05/07/2018. Further, nonspecific densities are identified within the "lumen" of these surgical defects suspicious for periosteal change. Local soft tissues at the site of the exhibit edema and trace gas suspicious for cellulitis or even small abscess. Soft tissue edema surrounds the ankle and is seen extending into the anterior/midfoot dorsal soft tissues without retained radiodense foreign body or emphysema soft tissue changes related. There is a large plantar calcaneal spur with degenerative cortical sclerosis appreciate the tibiotalar and subtalar joints as well as the remaining hindfoot and midfoot joints and mildly throughout the interphalangeal joints. Mild hallux valgus deformity is reiterated with moderate to severe 1st metatarsophalangeal joint degenerative changes evident. IMPRESSION: Pattern suspicious for osteomyelitis of the posterior calcaneus with multifocal if not diffuse left foot cellulitis. Trace gas is seen posterior to calcaneus within local soft tissues questionable periosteal changes within postoperative defects at the posterior calcaneus. Please see discussion above. MRI can be performed for added characterization. Concordant preliminary report from Tarun, 05/07/2018, 9:36 p.m..
--- NOTE | 2018-05-08 09:54 | CP.PCM.PN ---
Subjective - Date & Time of Evaluation Date of Evaluation: 05/08/18 Time of Evaluation: 09:47 - Subjective Subjective: Progress Note for Dr. Auguste 52 year old male with history of hypertension, type I diabetes, chronic osteomyelitis, asthma, anemia, anxiety, and asthma presents to the ED for right heel pain and ulceration. Upon chart review, patient is non-compliant and has been hospitalized for similar issues multiple times. He was last seen for os teomyelitis was in 01/2017. Patient states that his right heel pain started 3 days ago and he report to have foul smelling pus coming out of his right heel. He was last seen by a podiatry 1 week ago. Patient has subjective fever, and chills. He denies headache, dizziness, shortness of breath, chest pain, nausea, vomiting or diarrhea. PMH: hypertension, type I diabetes, chronic osteomyelitis, asthma, anemia, anxiety, and asthma PSH: Multiple foot surgeries/debridement b/l Allergies: NKDA Family Hx: DM Social Hx: Tobacco smoker, Denies EtOH or Illicit drug use. Unemployed Home meds: Airduo, Humulin 70/30, Venolin, Percocet, Xanax Objective - Vital Signs/Intake and Output Vital Signs (last 24 hours): Temp Pulse Resp BP Pulse Ox 98.9 F 115 H 20 114/67 99 05/08/18 07:48 05/08/18 07:48 05/08/18 07:48 05/08/18 07:48 05/08/18 07:48 - Medications Medications: Current Medications Enoxaparin Sodium (Lovenox) 40 mg SC DAILY [facility] Last Admin: 05/08/18 09:21 Dose: 40 mg Piperacillin Sod/Tazobactam (Sod 2.275 gm/ Sodium Chloride) 100 mls @ 200 mls/hr IVPB Q8H [facility]; Protocol Last Admin: 05/08/18 06:52 Dose: 200 mls/hr Insulin Aspart (Novolog) 0 unit SC ACHS [facility]; Protocol Last Admin: 05/08/18 08:08 Dose: Not Given Mupirocin (Bactroban Ointment) 1 gm TOP DAILY [facility] Last Admin: 05/08/18 09:17 Dose: 1 unit Oxycodone/Acetaminophen (Percocet 5/325 Mg Tab) 1 tab PO Q4 PRN PRN Reason: Pain Stop: 05/10/18 23:00 Last Admin: 05/08/18 09:21 Dose: 1 tab - Labs Labs: 05/07/18 20:08 05/07/18 20:08 PT 11.9 SECONDS (9.7-12.2) 05/07/18 20:08 INR 1.1 05/07/18 20:08 APTT 30 SECONDS (21-34) 05/07/18 20:08 - Additional Findings Additional findings: - Constitutional Appears: Non-toxic, No Acute Distress, Poor Hygiene - Head Exam Head Exam: ATRAUMATIC, NORMAL INSPECTION, NORMOCEPHALIC - Eye Exam Eye Exam: EOMI, Normal appearance Pupil Exam: NORMAL ACCOMODATION, PERRL - ENT Exam ENT Exam: Mucous Membranes Moist - Neck Exam Neck Exam: Full ROM - Respiratory Exam Respiratory Exam: NORMAL BREATHING PATTERN - Cardiovascular Exam Cardiovascular Exam: +S1, +S2 - GI/Abdominal Exam GI & Abdominal Exam: Soft, Normal Bowel Sounds - Extremities Exam Extremities Exam: Right heel open ulcer with purulent discharge, sensation intact - Back Exam Back Exam: Full ROM - Neurological Exam Neurological Exam: Alert, Awake, Oriented x3 - Psychiatric Exam Psychiatric exam: Normal Affect, Normal Mood - Skin Skin Exam: Warm Assessment and Plan - Assessment and Plan (Free Text) Assessment: Right heel ulcer -x ray right ankle shows bone loss at the posterior calcaneus suspicious for osteomyelitis -Follow up Lower extremity MRI -Blood culture pending -Wound cultures show Gram negative bharti -podiatry consulted, help appreciated -ID consulted, help appreciated -will start IV vanco and zosyn -Afebrile, no leukocytosis -Percocet for pain DM type 1 -ISS -Hypoglycemia protocol -Accuchecks Asthma -continue albuterol -oxygen therapy as needed Anxiety -continue to monitor -zolpidem at night GI/DVT ppx -SCDS -protonix Discussed with attending Dr. Auguste
[2018-05-08] MEDS ORDERED: Glucagon Recombinant 1 mg Inj IM PRN (09:57)
[2018-05-08] MEDS ORDERED: Dextrose 50% SYRINGE Inj (50 ml) IV PRN (09:57)
[2018-05-08] MEDS: (Novolin R) Insulin Human Regular 100 units/ml vial SC SCH ×3 (11:46→22:01)
[2018-05-08] MEDS ORDERED: Albuterol HFA 90 mcg/actuation (8 g) INH PRN (15:27)
[2018-05-08] MEDS: Piperacillin/Tazobact 3.375 GM in Sodium Chloride 100 ML IVPB SCH (18:21)
--- NOTE | 2018-05-08 19:40 | CP.PCM.CON ---
History of Present Illness - History of Present Illness History of Present Illness: 52 y/o male seen and evaluated for right heel ulceration abscess with underlying chronic OM. Patient was diagnosed with OM of right heel and was treated with IV abx and local wound care in the past. He underwent several foot surgeries bilateral over the last years. Patient states that his right heel started to get pain few days ago. He states that the pain is 10/10. He states that the ulcer in the back of his right heel is draining pus. PMH: Anemia, Anxiety, Asthma, Bronchitis, Cardiac Arrhythmia (SVT), Diabetes, HTN. PSH: Multiple foot surgeries b/l. Allergies: NKDA. Social Hx: Tobacco smoker, Denies EtOH or Illicit drug use. Review of Systems - Review of Systems All systems: reviewed and no additional remarkable complaints except - Constitutional Constitutional: As Per HPI - EENT Eyes: absent: As Per HPI, Blind Spots, Blurred Vision, Change in Vision, Decreased Night Vision, Diplopia, Discharge, Dry Eye, Exophthalmos, Floaters, Irritation, Itchy Eyes, Loss of Peripheral Vision, Pain, Photophobia, Requires Corrective Lenses, Sees Flashes, Spots in Vision, Tunnel Vision, Other Visual Disturbances, Loss of Vision, Other Ears: absent: As Per HPI, Decreased Hearing, Ear Discharge, Ear Pain, Tinnitus, Abnormal Hearing, Disequilibrium, Dizziness, Other Nose/Mouth/Throat: absent: As Per HPI, Epistaxis, Nasal Congestion, Nasal Discharge, Nasal Obstruction, Nasal Trauma, Nose Pain, Post Nasal Drip, Sinus Pain, Sinus Pressure, Bleeding Gums, Change in Voice, Dental Pain, Dry Mouth, Dysphagia, Halitosis, Hoarsness, Lip Swelling, Mouth Lesions, Mouth Pain, Odynophagia, Sore Throat, Throat Swelling, Tongue Swelling, Facial Pain, Neck Pain, Neck Mass, Other - Cardiovascular Cardiovascular: absent: As Per HPI, Acrocyanosis, Chest Pain, Chest Pain at Rest, Chest Pain with Activity, Claudication, Diaphoresis, Dyspnea, Dyspnea on Exertion, Edema, Irregular Heart Rhythm, Pain Radiating to Arm/Neck/Jaw, Leg Edema, Leg Ulcers, Lightheadedness, Orthopnea, Palpitations, Paroxysmal Nocturnal Dyspnea, Pedal Edema, Radiating Pain, Rapid Heart Rate, Slow Heart Rate, Syncope, Other - Respiratory Respiratory: absent: As Per HPI, Cough, Dyspnea, Hemoptysis, Dyspnea on Exertion, Wheezing, Snoring, Stridor, Pain on Inspiration, Chest Congestion, Excessive Mucous Production, Change in Mucous Color, Pain with Coughing, Other - Gastrointestinal Gastrointestinal: absent: As Per HPI, Abdominal Pain, Belching, Bloating, Change in Bowel Habits, Change in Stool Character, Coffee Ground Emesis, Constipation, Cramping, Diarrhea, Dyspepsia, Dysphagia, Early Satiety, Excessive Flatus, Fecal Incontinence, Heartburn, Hematemesis, Hematochezia, Loose Stools, Melena, Nausea, Odynophagia, Temesmus, Vomiting, Other - Genitourinary Genitourinary: absent: As Per HPI, Change in Urinary Stream, Difficulty Urinating, Dysuria, Flank Pain, Hematuria, Pyuria, Nocturia, Urinary In continence, Urinary Frequency, Urinary Hesitance, Urinary Urgency, Voiding Freq/Small Amts, Freq UTI, Hx Renal/Bladder Calculi, Hx /Renal Surgery, Bladder Distension, Other - Reproductive: Male Reproductive:Male: As Per HPI - Musculoskeletal Musculoskeletal: As Per HPI - Integumentary Integumentary: As Per HPI, Skin Pain, Wounds - Neurological Neurological: As Per HPI - Psychiatric Psychiatric: absent: As Per HPI, Abnormal Sleep Pattern, Anhedonia, Anxiety, Auditory Hallucinations, Behavioral Changes, Change in Appetite, Change in Libido, Confusion, Depression, Difficulty Concentrating, Hallucinations, Homicidal Ideation, Hopelessness, Irritability, Memory Loss, Mood Swings, Panic Attacks, Paranoia, Suicidal Ideation, Visual Hallucinations, Tactile Hallucinations, Other - Endocrine Endocrine: absent: As Per HPI, Change in Body Appearance, Change in Libido, Cold Intolorance, Deepening of Voice, Excessive Sweating, Fatigue, Flushing, Heat Intolorance, Increase in Ring/Shoe/Hat Size, Palpitations, Polydipsia, Polyphagia, Polyuria, Other - Hematologic/Lymphatic Hematologic: absent: As Per HPI, Easy Bleeding, Easy Bruising, Lymphadenopathy, Other Past Patient History - Infectious Disease Hx of Infectious Diseases: None - Tetanus Immunizations Tetanus Immunization: Unknown - Past Medical History & Family History Past Medical History?: Yes - Past Social History Smoking Status: Never Smoked - CARDIAC Hx Cardia Arrhythmia: Yes (SVT) Hx Congestive Heart Failure: No Hx Hypercholesterolemia: No Hx Hypertension: Yes - PULMONARY Hx Asthma: Yes Hx Bronchitis: Yes Hx Chronic Obstructive Pulmonary Disease (COPD): No - NEUROLOGICAL Hx Neurological Disorder: No HX Cerebrovascular Accident: No - HEENT Hx HEENT Problems: No - RENAL Hx Chronic Kidney Disease: No - ENDOCRINE/METABOLIC Hx Hypothyroidism: No - HEMATOLOGICAL/ONCOLOGICAL Hx Anemia: Yes - INTEGUMENTARY Hx Dermatological Problems: No Other/Comment: dry skin , hard thick nails both feet - MUSCULOSKELETAL/RHEUMATOLOGICAL Hx Arthritis: No Hx Rheumatoid Arthritis: No - GASTROINTESTINAL Hx Gastrointestinal Disorders: No - GENITOURINARY/GYNECOLOGICAL Hx Genitourinary Disorders: No - PSYCHIATRIC Hx Anxiety: Yes Hx Depression: No Hx Substance Use: No - SURGICAL HISTORY Hx Surgeries: Yes (coty picc line for abx for bone infection) Hx Cataract Extraction: Yes Hx Musculoskeletal Surgery: Yes (JARRED FOOT ) Other/Comment: right foot sx with dr colunga for heel spur, bone removed out of heel and 5th toe bunyon removed. pilonidal cystectomy, left foot surgery 2014 - ANESTHESIA Hx Anesthesia: Yes Hx Anesthesia Reactions: No Hx Malignant Hyperthermia: No Meds Allergies/Adverse Reactions: Allergies Allergy/AdvReac Type Severity Reaction Status Date / Time No Known Allergies Allergy Verified 08/23/17 17:28 - Medications Medications: Current Medications Albuterol (Ventolin Hfa 90 Mcg/Actuation (8 G)) 1 puff INH RQ4 PRN PRN Reason: Shortness of Breath Dextrose (Dextrose 50% Inj) 0 ml IV STAT PRN; Protocol PRN Reason: Hypoglycemia Protocol Dextrose (Glutose 15) 0 gm PO ONCE PRN; Protocol PRN Reason: Hypoglycemia Protocol Enoxaparin Sodium (Lovenox) 40 mg SC DAILY [facility] Last Admin: 05/08/18 09:21 Dose: 40 mg Glucagon (Glucagen Diagnostic Kit) 0 mg IM STAT PRN; Protocol PRN Reason: Hypoglycemia Protocol Dextrose (Dextrose 5% In Water 1000 Ml) 1,000 mls @ 0 mls/hr IV .Q0M PRN; Protocol PRN Reason: Hypoglycemia Protocol Vancomycin HCl 1 gm/ Sodium (Chloride) 250 mls @ 166.7 mls/hr IVPB Q24H [facility]; Protocol Last Admin: 05/08/18 16:13 Dose: 166.7 mls/hr Piperacillin Sod/Tazobactam (Sod 3.375 gm/ Sodium Chloride) 100 mls @ 200 mls/hr IVPB Q8H [facility]; Protocol Last Admin: 05/08/18 18:21 Dose: 200 mls/hr Insulin Human Regular (Novolin R) 0 unit SC ACHS [facility]; Protocol Last Admin: 05/08/18 18:12 Dose: Not Given Mupirocin (Bactroban Ointment) 1 gm TOP DAILY [facility] Last Admin: 05/08/18 09:17 Dose: 1 unit Oxycodone/Acetaminophen (Percocet 5/325 Mg Tab) 1 tab PO Q4 PRN PRN Reason: Pain Stop: 05/10/18 23:00 Last Admin: 05/08/18 09:21 Dose: 1 tab Pantoprazole Sodium (Protonix Ec Tab) 40 mg PO DAILY [facility] Zolpidem Tartrate (Ambien) 5 mg PO HS PRN PRN Reason: Insomnia Physical Exam - Constitutional Appears: Non-toxic, Chronically Ill - Head Exam Head Exam: NORMOCEPHALIC - Eye Exam Eye Exam: absent: Scleral icterus - ENT Exam ENT Exam: Mucous Membranes Dry - Neck Exam Neck exam: Negative for: Lymphadenopathy - Respiratory Exam Respiratory Exam: Decreased Breath Sounds - Cardiovascular Exam Cardiovascular Exam: REGULAR RHYTHM - GI/Abdominal Exam GI & Abdominal Exam: Diminished Bowel Sounds, Soft. absent: Tenderness - Rectal Exam Rectal Exam: Deferred - Exam Exam: NORMAL INSPECTION - Extremities Exam Extremities exam: Positive for: pedal edema, tenderness, pedal pulses present. Negative for: calf tenderness - Back Exam Back exam: absent: CVA tenderness (L), CVA tenderness (R) - Neurological Exam Neurological exam: Alert, CN II-XII Intact, Oriented x3, Reflexes Normal - Psychiatric Exam Psychiatric exam: Normal Mood - Skin Skin Exam: Dry Results - Vital Signs Recent Vital Signs: Last Vital Signs Temp 97.4 F L 05/08/18 17:36 Pulse 53 L 05/08/18 17:36 Resp 20 05/08/18 17:36 BP 127/82 05/08/18 17:36 Pulse Ox 98 05/08/18 17:36 - Labs Result Diagrams: 05/07/18 20:08 05/07/18 20:08 Labs: Laboratory Results - last 24 hr 05/07/18 05/07/18 05/07/18 20:08 20:08 20:08 WBC 5.8 RBC 4.03 L Hgb 12.6 Hct 37.7 MCV 93.7 MCH 31.2 H MCHC 33.3 RDW 13.1 Plt Count 202 MPV 8.2 Neut % (Auto) 44.1 L Lymph % (Auto) 45.2 H [place] % (Auto) 7.7 Eos % (Auto) 2.3 Baso % (Auto) 0.7 Neut # (Auto) 2.6 Lymph # (Auto) 2.6 [place] # (Auto) 0.4 Eos # (Auto) 0.1 Baso # (Auto) 0.0 PT 11.9 INR 1.1 APTT 30 pO2 VBG pH VBG pCO2 VBG HCO3 VBG Total CO2 VBG O2 Sat (Calc) VBG Base Excess VBG Potassium Glucose Lactate Sodium 136 Potassium 3.9 Chloride 101 Carbon Dioxide 28 Anion Gap 11 BUN 10 Creatinine 0.9 Est GFR ( Amer) > 60 Est GFR (Non-Af Amer) > 60 POC Glucose (mg/dL) Random Glucose 89 Hemoglobin A1c Calcium 8.8 Magnesium 2.0 Total Bilirubin 0.4 AST 48 ALT 29 Alkaline Phosphatase 85 Total Protein 7.3 Albumin 4.1 Globulin 3.2 Albumin/Globulin Ratio 1.3 Lipase 55 Venous Blood Potassium B-Hydroxybutyrate 0.04 05/07/18 05/07/18 05/08/18 20:08 20:15 07:21 WBC RBC Hgb Hct MCV MCH MCHC RDW Plt Count MPV Neut % (Auto) Lymph % (Auto) [place] % (Auto) Eos % (Auto) Baso % (Auto) Neut # (Auto) Lymph # (Auto) [place] # (Auto) Eos # (Auto) Baso # (Auto) PT INR APTT pO2 46 VBG pH 7.38 VBG pCO2 51 VBG HCO3 27.5 VBG Total CO2 31.8 H VBG O2 Sat (Calc) 88.6 H VBG Base Excess 3.9 H VBG Potassium 5.2 Glucose 88 Lactate 0.8 Sodium 136.0 Potassium Chloride 107.0 Carbon Dioxide Anion Gap BUN Creatinine Est GFR ( Amer) Est GFR (Non-Af Amer) POC Glucose (mg/dL) 102 Random Glucose Hemoglobin A1c 5.2 Calcium Magnesium Total Bilirubin AST ALT Alkaline Phosphatase Total Protein Albumin Globulin Albumin/Globulin Ratio Lipase Venous Blood Potassium 5.2 B-Hydroxybutyrate 05/08/18 05/08/18 11:07 16:25 WBC RBC Hgb Hct MCV MCH MCHC RDW Plt Count MPV Neut % (Auto) Lymph % (Auto) [place] % (Auto) Eos % (Auto) Baso % (Auto) Neut # (Auto) Lymph # (Auto) [place] # (Auto) Eos # (Auto) Baso # (Auto) PT INR APTT pO2 VBG pH VBG pCO2 VBG HCO3 VBG Total CO2 VBG O2 Sat (Calc) VBG Base Excess VBG Potassium Glucose Lactate Sodium Potassium Chloride Carbon Dioxide Anion Gap BUN Creatinine Est GFR ( Amer) Est GFR (Non-Af Amer) POC Glucose (mg/dL) 100 101 Random Glucose Hemoglobin A1c Calcium Magnesium Total Bilirubin AST ALT Alkaline Phosphatase Total Protein Albumin Globulin Albumin/Globulin Ratio Lipase Venous Blood Potassium B-Hydroxybutyrate Assessment & Plan (1) Cellulitis Status: Acute (2) Osteomyelitis of ankle Status: Acute - Assessment and Plan (Free Text) Assessment: recc debridement consider MRI cont IV rx for 6-8 weeks with ongoing wound care await cultures
[2018-05-08] MEDS: Oxycodone/Acetaminophen 5/325 mg Tab PO PRN (21:58)
[2018-05-09] MEDS: Piperacillin/Tazobact 3.375 GM in Sodium Chloride 100 ML IVPB SCH ×3 (01:35→17:43)
[2018-05-09 07:38] LABS: BASO % 0.7 % (0.0-2.0); EOS # 0.1 K/uL (0.0-0.7); EOS % 1.6 % (0.0-4.0); HEMOGLOBIN 13.1 g/dL (12.0-18.0); LYMPH # 1.4 K/uL (1.0-4.3); LYMPH % 21.5 % (20.0-40.0); MEAN CORPUSCULAR HEMOGLOBIN 32.3 pg (27.0-31.0); MEAN CORPUSCULAR HGB CONC 33.8 g/dL (33.0-37.0); MEAN PLATELET VOLUME 8.4 fL (7.2-11.7); MONO # 0.5 K/uL (0.0-0.8); MONO % 7.7 % (0.0-10.0); NEUT # 4.6 K/uL (1.8-7.0); NEUT % 68.5 % (50.0-75.0); RBC 4.06 Mil/uL (4.40-5.90); WHITE BLOOD COUNT 6.7 K/uL (4.8-10.8)
[2018-05-09 07:47] LABS: MEAN CELL VOLUME 95.7 fL (80.0-94.0)
[2018-05-09 08:00] LABS: ALB/GLOB RATIO 1.3 (1.0-2.1); ALT/SGPT 32 U/L (21-72); AST/SGOT 31 U/L (17-59); BLOOD UREA NITROGEN 11 mg/dL (9-20); CALCIUM 8.9 mg/dl (8.6-10.4); GFR NON-AFRICAN AMERICAN > 60
[2018-05-09] MEDS: (Novolin R) Insulin Human Regular 100 units/ml vial SC SCH ×4 (08:02→21:26)
--- NOTE | 2018-05-09 10:23 | CP.PCM.PN ---
<Lefty Barajas - Last Filed: 05/09/18 10:23> Subjective - Date & Time of Evaluation Date of Evaluation: 05/09/18 Time of Evaluation: 10:23 Objective - Vital Signs/Intake and Output Vital Signs (last 24 hours): Temp Pulse Resp BP Pulse Ox 98.9 F 60 20 133/80 98 05/09/18 07:00 05/09/18 07:00 05/09/18 07:00 05/09/18 07:00 05/09/18 07:00 Intake and Output: 05/09/18 05/09/18 06:59 18:59 Intake Total 540 Balance 540 - Medications Medications: Current Medications Albuterol (Ventolin Hfa 90 Mcg/Actuation (8 G)) 1 puff INH RQ4 PRN PRN Reason: Shortness of Breath Dextrose (Dextrose 50% Inj) 0 ml IV STAT PRN; Protocol PRN Reason: Hypoglycemia Protocol Dextrose (Glutose 15) 0 gm PO ONCE PRN; Protocol PRN Reason: Hypoglycemia Protocol Enoxaparin Sodium (Lovenox) 40 mg SC DAILY [facility] Last Admin: 05/08/18 09:21 Dose: 40 mg Glucagon (Glucagen Diagnostic Kit) 0 mg IM STAT PRN; Protocol PRN Reason: Hypoglycemia Protocol Dextrose (Dextrose 5% In Water 1000 Ml) 1,000 mls @ 0 mls/hr IV .Q0M PRN; Protocol PRN Reason: Hypoglycemia Protocol Vancomycin HCl 1 gm/ Sodium (Chloride) 250 mls @ 166.7 mls/hr IVPB Q24H [facility]; Protocol Last Admin: 05/08/18 16:13 Dose: 166.7 mls/hr Piperacillin Sod/Tazobactam (Sod 3.375 gm/ Sodium Chloride) 100 mls @ 200 mls/hr IVPB Q8H [facility]; Protocol Last Admin: 05/09/18 01:35 Dose: 200 mls/hr Insulin Human Regular (Novolin R) 0 unit SC ACHS [facility]; Protocol Last Admin: 05/09/18 08:02 Dose: Not Given Lorazepam (Ativan) 2 mg IVP Q6H PRN PRN Reason: Anxiety Last Admin: 05/09/18 08:38 Dose: 2 mg Mupirocin (Bactroban Ointment) 1 gm TOP DAILY [facility] Last Admin: 05/08/18 09:17 Dose: 1 unit Oxycodone/Acetaminophen (Percocet 5/325 Mg Tab) 2 tab PO Q4H PRN PRN Reason: Pain, severe (8-10) Stop: 05/11/18 21:30 Last Admin: 05/08/18 21:58 Dose: 2 tab Pantoprazole Sodium (Protonix Ec Tab) 40 mg PO DAILY [facility] Zolpidem Tartrate (Ambien) 5 mg PO HS PRN PRN Reason: Insomnia - Labs Labs: 05/09/18 07:17 05/09/18 07:17 PT 11.9 SECONDS (9.7-12.2) 05/07/18 20:08 INR 1.1 05/07/18 20:08 APTT 30 SECONDS (21-34) 05/07/18 20:08 <Blanca Jaime - Last Filed: 05/09/18 11:19> Subjective - Subjective Subjective: Podiatry Progress Note - Dr. Barajas 52 y/o male seen at bedside this morning for right heel ulceration. Says he has some pain in the right heel wound but it is fine at this time. Denies any overnight events. Denies tingling, numbness or burning in the extremities at present. Denies F/C/N/V/CP/SOB Objective - Vital Signs/Intake and Output Vital Signs (last 24 hours): Temp Pulse Resp BP Pulse Ox 98.9 F 60 20 133/80 98 05/09/18 07:00 05/09/18 07:00 05/09/18 07:00 05/09/18 07:00 05/09/18 07:00 Intake and Output: 05/09/18 05/09/18 06:59 18:59 Intake Total 540 Balance 540 - Medications Medications: Current Medications Albuterol (Ventolin Hfa 90 Mcg/Actuation (8 G)) 1 puff INH RQ4 PRN PRN Reason: Shortness of Breath Dextrose (Dextrose 50% Inj) 0 ml IV STAT PRN; Protocol PRN Reason: Hypoglycemia Protocol Dextrose (Glutose 15) 0 gm PO ONCE PRN; Protocol PRN Reason: Hypoglycemia Protocol Enoxaparin Sodium (Lovenox) 40 mg SC DAILY [facility] Last Admin: 05/09/18 10:26 Dose: Not Given Glucagon (Glucagen Diagnostic Kit) 0 mg IM STAT PRN; Protocol PRN Reason: Hypoglycemia Protocol Dextrose (Dextrose 5% In Water 1000 Ml) 1,000 mls @ 0 mls/hr IV .Q0M PRN; Protocol PRN Reason: Hypoglycemia Protocol Vancomycin HCl 1 gm/ Sodium (Chloride) 250 mls @ 166.7 mls/hr IVPB Q24H [facility]; Protocol Last Admin: 05/08/18 16:13 Dose: 166.7 mls/hr Piperacillin Sod/Tazobactam (Sod 3.375 gm/ Sodium Chloride) 100 mls @ 200 mls/hr IVPB Q8H [facility]; Protocol Last Admin: 05/09/18 10:45 Dose: 200 mls/hr Insulin Human Regular (Novolin R) 0 unit SC ACHS [facility]; Protocol Last Admin: 05/09/18 08:02 Dose: Not Given Lorazepam (Ativan) 2 mg IVP Q6H PRN PRN Reason: Anxiety Last Admin: 05/09/18 08:38 Dose: 2 mg Mupirocin (Bactroban Ointment) 1 gm TOP DAILY [facility] Last Admin: 05/09/18 10:26 Dose: Not Given Oxycodone/Acetaminophen (Percocet 5/325 Mg Tab) 2 tab PO Q4H PRN PRN Reason: Pain, severe (8-10) Stop: 05/11/18 21:30 Last Admin: 05/08/18 21:58 Dose: 2 tab Pantoprazole Sodium (Protonix Ec Tab) 40 mg PO DAILY [facility] Last Admin: 05/09/18 10:26 Dose: Not Given Zolpidem Tartrate (Ambien) 5 mg PO HS PRN PRN Reason: Insomnia - Labs Labs: 05/09/18 07:17 05/09/18 07:17 PT 11.9 SECONDS (9.7-12.2) 05/07/18 20:08 INR 1.1 05/07/18 20:08 APTT 30 SECONDS (21-34) 05/07/18 20:08 - Constitutional Appears: Well, Non-toxic, No Acute Distress - Head Exam Head Exam: ATRAUMATIC, NORMOCEPHALIC - Eye Exam Eye Exam: Normal appearance - ENT Exam ENT Exam: Mucous Membranes Moist - Extremities Exam Additional comments: Right lower extremity focused examination: Vasc: DP/PT pulses are palpable 2/4. Cap refill < 3 sec to all digits. Temperature gradient warm to cool from proximal to distal. Moderate non pitting edema noted to posterior heel Neuro: protective sensation diminished, Gross sensation intact. Derm: Open ulceration to posterior heel measuring 1 cm x 0.5 cm x 0.1 cm with fibrous base. Fluctuance noted jd wound. Minimal purulence expressed on examination. No erythema, no erythema. Positive malodor noted. No tracking or probing to bone noted. 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 Barajas Chart, labs and vitals reviewed X-rays reveal destructive changes at posterior calcaneus, suspicious for osteomyelitis MRI completed- final read pending Clinically ulceration appears stable but there is swelling and fluctuance surrounding the ulcer suggestive of fluid collection vs abscess - await MRI results Cleansed ulceration with saline and dressed with bactroban and DSD Patient to be WBAT in surgical shoe ID Dr. Tiwari on board, appreciate recommendations Podiatry to possibly take patient to the OR next week pending MRI read Podiatry will follow up the patient while in house
[2018-05-09] MEDS: Enoxaparin 40 mg Syringe SC SCH (10:26)
[2018-05-09] MEDS: Pantoprazole 40 mg EC Tab PO SCH (10:26)
[2018-05-09] MEDS: Oxycodone/Acetaminophen 5/325 mg Tab PO PRN ×2 (12:42→23:37)
[2018-05-09 14:34] LABS: URINE BILIRUBIN NEGATIVE (NEGATIVE); URINE BLOOD NEGATIVE (NEGATIVE); URINE CLARITY Clear (Clear); URINE COLOR Yellow (YELLOW); URINE GLUCOSE (UA) NORMAL (Normal); URINE LEUKOCYTE ESTERASE NEG Leu/uL (Negative); URINE PROTEIN NEGATIVE (NEGATIVE); URINE UROBILINOGEN NORMAL mg/dL (0.2-1.0)
--- NOTE | 2018-05-09 16:36 | MRI ---
MRI right ankle History: Osteomyelitis. Comparison: X-ray dated 05/07/2018 Technique: Multi-echo multiplanar sequences were performed through the right ankle without the use of intravenous contrast. Findings: Postsurgical changes of the distal Achilles tendon with 2 surgical screws / tracks seen within posterior calcaneus. Within the posterior soft tissues, there is a soft tissue defect which leads to the level of the posterior calcaneus. At the level of the posterior calcaneus, extending from the soft tissue defects and surrounding the screw tracks is a heterogeneous fluid attenuated collection measuring 2.3 x 1.8 x 1.7 centimeters. This is of uncertain clinical etiology and may represent an intraosseous abscess or phlegmon collection versus postsurgical collection versus additional etiology. In addition, there is extensive signal abnormality seen in the adjacent mid to posterior calcaneus with decreased T1 signal and increased STIR signal concerning for acute infectious and or inflammatory changes such as acute osteomyelitis versus additional etiology. Clinical correlation. Adjacent fraying of the distal Achilles tendon insertion which appears grossly intact. Plantar calcaneal spurring with some thickening of the plantar fascia measuring up to 8 millimeters suggestive for a mild plantar fascitis. Sinus tarsi appears preserved. Small ankle joint effusion. Narrowing of the tibiotalar joint space. Anterior extensor tendons are preserved. Medial flexor tendons are preserved. Peroneal tendons are preserved. Anterior and posterior tibiofibular ligaments are preserved. Anterior and posterior talofibular ligaments are preserved. Mild increased signal at the level the Lisfranc ligament which may represent a sprain. Clinical correlation. Deltoid ligament appears grossly preserved. Reticulation and edema within the circumferential subcutaneous soft tissues of the ankle. Prominence of the middle subtalar joint space. Reticulation and edema within the adjacent soft tissues. Impression: 1. Postsurgical changes of the distal Achilles tendon with 2 surgical screws / tracks seen within posterior calcaneus. Within the posterior soft tissues, there is a soft tissue defect which leads to the level of the posterior calcaneus. At the level of the posterior calcaneus, extending from the soft tissue defects and surrounding the screw tracks is a heterogeneous fluid attenuated collection measuring 2.3 x 1.8 x 1.7 centimeters. This is of uncertain clinical etiology and may represent an intraosseous abscess or phlegmon collection versus postsurgical collection versus additional etiology. In addition, there is extensive signal abnormality seen in the adjacent mid to posterior calcaneus with decreased T1 signal and increased STIR signal concerning for acute infectious and or inflammatory changes such as acute osteomyelitis versus additional etiology. Clinical correlation. 2. Adjacent fraying of the distal Achilles tendon insertion which appears grossly intact. 3. Plantar calcaneal spurring with some thickening of the plantar fascia measuring up to 8 millimeters suggestive for a mild plantar fascitis. 4. Small ankle joint effusion. 5. Narrowing of the tibiotalar joint space. 6. Mild increased signal at the level the Lisfranc ligament which may represent a sprain. Clinical correlation. 7. Reticulation and edema within the circumferential subcutaneous soft tissues of the ankle. 8. Prominence of the middle subtalar joint space. 9. Reticulation and edema within the adjacent soft tissues.
[2018-05-10] MEDS: Piperacillin/Tazobact 3.375 GM in Sodium Chloride 100 ML IVPB SCH ×2 (01:13→10:17)
[2018-05-10] MEDS: (Novolin R) Insulin Human Regular 100 units/ml vial SC SCH ×2 (07:48→11:32)
--- NOTE | 2018-05-10 07:49 | HP ---
HISTORY OF PRESENT ILLNESS: A 52-year-old male admitted to the hospital with a complaint of diabetic foot. Seen by Podiatry, advised admission. The patient has a history of diabetic foot, multiple admissions. PHYSICAL EXAMINATION: GENERAL: The patient is awake, alert, and oriented. VITAL SIGNS: Temperature 98, pulse 90. HEENT: Within normal limits. NECK: Supple. CHEST: Symmetrical. HEART: Regular. ABDOMEN: Soft. EXTREMITIES: He has ulcer and necrotic wound present in the foot. ASSESSMENT: Diabetic wound infection. PLAN: Getting IV antibiotics. Podiatry consult. Andres Auguste MD
[2018-05-10 08:02] LABS: BASO # 0.1 K/uL (0.0-0.2); BASO % 0.8 % (0.0-2.0); EOS % 0.7 % (0.0-4.0); HEMOGLOBIN 13.3 g/dL (12.0-18.0); LYMPH # 2.3 K/uL (1.0-4.3); LYMPH % 34.3 % (20.0-40.0); MEAN CELL VOLUME 96.3 fL (80.0-94.0); MEAN CORPUSCULAR HEMOGLOBIN 32.2 pg (27.0-31.0); MEAN CORPUSCULAR HGB CONC 33.5 g/dL (33.0-37.0); MEAN PLATELET VOLUME 8.1 fL (7.2-11.7); MONO # 0.5 K/uL (0.0-0.8); MONO % 7.8 % (0.0-10.0); NEUT # 3.8 K/uL (1.8-7.0); NEUT % 56.4 % (50.0-75.0); RBC 4.13 Mil/uL (4.40-5.90); RED CELL DISTRIBUTION WIDTH 13.2 % (11.5-14.5); WHITE BLOOD COUNT 6.8 K/uL (4.8-10.8)
[2018-05-10 08:22] LABS: ALB/GLOB RATIO 1.2 (1.0-2.1); ALBUMIN 4.1 g/dL (3.5-5.0); ALT/SGPT 28 U/L (21-72); AST/SGOT 38 U/L (17-59); BLOOD UREA NITROGEN 9 mg/dL (9-20); CALCIUM 9.1 mg/dl (8.6-10.4); GFR NON-AFRICAN AMERICAN > 60
--- NOTE | 2018-05-10 08:42 | CP.PCM.PN ---
Subjective - Date & Time of Evaluation Date of Evaluation: 05/10/18 Time of Evaluation: 08:38 - Subjective Subjective: Podiatry Progress Note - Dr. Barajas 52 y/o male seen at bedside this morning for right heel ulceration. Says he has some pain in the right heel wound but it is fine at this time. Denies any overnight events. Denies tingling, numbness or burning in the extremities at present. Denies F/C/N/V/CP/SOB Objective - Vital Signs/Intake and Output Vital Signs (last 24 hours): Temp Pulse Resp BP Pulse Ox 98.5 F 53 L 18 120/75 98 05/10/18 00:00 05/10/18 00:00 05/10/18 00:00 05/10/18 00:00 05/10/18 00:00 Intake and Output: 05/10/18 05/10/18 06:59 18:59 Intake Total 800 Output Total 850 Balance -50 - Medications Medications: Current Medications Albuterol (Ventolin Hfa 90 Mcg/Actuation (8 G)) 1 puff INH RQ4 PRN PRN Reason: Shortness of Breath Dextrose (Dextrose 50% Inj) 0 ml IV STAT PRN; Protocol PRN Reason: Hypoglycemia Protocol Dextrose (Glutose 15) 0 gm PO ONCE PRN; Protocol PRN Reason: Hypoglycemia Protocol Enoxaparin Sodium (Lovenox) 40 mg SC DAILY [facility] Last Admin: 05/09/18 10:26 Dose: Not Given Glucagon (Glucagen Diagnostic Kit) 0 mg IM STAT PRN; Protocol PRN Reason: Hypoglycemia Protocol Dextrose (Dextrose 5% In Water 1000 Ml) 1,000 mls @ 0 mls/hr IV .Q0M PRN; Protocol PRN Reason: Hypoglycemia Protocol Vancomycin HCl 1 gm/ Sodium (Chloride) 250 mls @ 166.7 mls/hr IVPB Q24H [facility]; Protocol Last Admin: 05/09/18 17:19 Dose: 166.7 mls/hr Piperacillin Sod/Tazobactam (Sod 3.375 gm/ Sodium Chloride) 100 mls @ 200 mls/hr IVPB Q8H [facility]; Protocol Last Admin: 05/10/18 01:13 Dose: 200 mls/hr Insulin Human Regular (Novolin R) 0 unit SC ACHS [facility]; Protocol Last Admin: 05/10/18 07:48 Dose: Not Given Lorazepam (Ativan) 2 mg IVP Q6H PRN PRN Reason: Anxiety Last Admin: 05/09/18 08:38 Dose: 2 mg Mupirocin (Bactroban Ointment) 1 gm TOP DAILY [facility] Last Admin: 05/09/18 10:26 Dose: Not Given Oxycodone/Acetaminophen (Percocet 5/325 Mg Tab) 2 tab PO Q4H PRN PRN Reason: Pain, severe (8-10) Stop: 05/11/18 21:30 Last Admin: 05/09/18 23:37 Dose: 2 tab Pantoprazole Sodium (Protonix Ec Tab) 40 mg PO DAILY [facility] Last Admin: 05/09/18 10:26 Dose: Not Given Zolpidem Tartrate (Ambien) 5 mg PO HS PRN PRN Reason: Insomnia - Labs Labs: 05/10/18 07:46 05/10/18 07:44 PT 11.9 SECONDS (9.7-12.2) 05/07/18 20:08 INR 1.1 05/07/18 20:08 APTT 30 SECONDS (21-34) 05/07/18 20:08 - Constitutional Appears: Well, Non-toxic, No Acute Distress - Head Exam Head Exam: ATRAUMATIC, NORMOCEPHALIC - Extremities Exam Additional comments: Right lower extremity focused examination: Vasc: DP/PT pulses are palpable 2/4. Cap refill < 3 sec to all digits. Temperature gradient warm to cool from proximal to distal. Moderate non pitting edema noted to posterior heel Neuro: protective sensation diminished, Gross sensation intact. Derm: Open ulceration to posterior heel measuring 1 cm x 0.5 cm x 0.1 cm with fibrous base. Fluctuance noted jd wound. Minimal purulence expressed on examination. No erythema, no erythema. Positive malodor noted. No tracking or probing to bone noted. 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 Barajas Chart, labs and vitals reviewed X-rays reveal destructive changes at posterior calcaneus, suspicious for osteomyelitis MRI completed- post surgical changes of the distal achilles tendon, heterogenous fluid collection, may represent intra-osseous abscess, with decreased T1 signal, and increased STIR signal concerning for acute infection and or inflammatory changes such as acute osteo Clinically ulceration appears stable but there is swelling and fluctuance surrounding the ulcer suggestive of fluid collection vs abscess - await MRI results Cleansed ulceration with saline and dressed with bactroban, xeroform, DSD Patient to be WBAT in surgical shoe ID Dr. Tiwari on board, appreciate recommendations Podiatry to possibly take patient to the OR next week Medical clearance required Podiatry will follow up the patient while in house
[2018-05-10] MEDS: Pantoprazole 40 mg EC Tab PO SCH (10:17)
[2018-05-10] MEDS: Enoxaparin 40 mg Syringe SC SCH (10:17)
[2018-05-10 10:19] VITALS: BP 139/78; PULSE 70; RESP 20; TEMP 97.3; O2SAT 95
== END 2018-05-10 14:15 | disposition left against medical advice (07) | DRG 294 ==
LOC: C.ER 18:29 → C.9E 21:43 → C.3T 05-08 14:39
PROVIDERS: ADMIT Internal Medicine Pulmonary Disease; ATTEND Internal Medicine Pulmonary Disease
DX: E10.621 Type 1 diabetes mellitus with foot ulcer (principal); L97.419 Non-pressure chronic ulcer of right heel and midfoot with unspecified severity; L03.115 Cellulitis of right lower limb; M86.671 Other chronic osteomyelitis, right ankle and foot; E10.69 Type 1 diabetes mellitus with other specified complication; I10 Essential (primary) hypertension; J45.909 Unspecified asthma, uncomplicated; F41.9 Anxiety disorder, unspecified; F17.210 Nicotine dependence, cigarettes, uncomplicated; Z79.4 Long term (current) use of insulin; Z91.19 Patient's noncompliance with other medical treatment and regimen